=== PATIENT | male | born 1990 | race Caucasian/White ===

== ENCOUNTER 2020-11-11 13:01 | Outpatient (CLI) | payer OTHER, SELFPAY ==
--- NOTE | ~2020-11-11 | CT_ITS ---
EXAMINATION: CTA chest PE protocol DATE: 11/11/2020 13:27 INDICATION: Dyspnea TECHNIQUE: Computed tomography angiography (CTA) of the chest was performed with 100 mL Omnipaque-350 intravenous contrast timed to evaluate the pulmonary arteries. Coronal maximum intensity projection 3D-reconstructions were created by the technologist. Automated exposure control and iterative reconst ruction technique were employed. Exam dose: 786.77 mGy-cm total exam DLP. COMPARISON: 10/28/2018 PA and lateral chest 08/27/2016 CT pulmonary scan FINDINGS: There is diagnostic contrast enhancement of pulmonary stenosis of pulmonary embolism. No thoracic aortic aneurysm or dissection. Heart size is within normal range. No pericardial or pleur al effusion. No hilar or mediastinal mass lesion or lymphadenopathy. Prominent left lower lobe calcified pulmonary granuloma. No pulmonary consolidation. There is mild pa tchy groundglass density involving primarily the lower lobes, possibly due to small airways disease. IMPRESSION: No evidence of pulmonary embolism Reviewed, dictated and finalized at [facility]. Reviewed, dictated and finalized at location A.
== END 2020-11-11 13:02 | disposition home or self-care (01) ==
PROVIDERS: PCP Family Medicine; Visit Provider Physician Assistant
DX: R06.00 Dyspnea, unspecified (principal)
CPT/HCPCS: 71275; Q9967

== ENCOUNTER 2021-11-27 09:44 | Outpatient (CLI) | payer BC, SELFPAY ==
--- NOTE | ~2021-11-27 | CT_ITS ---
EXAMINATION: CT abdomen pelvis w con DATE: 11/27/2021 10:20 INDICATION: Abdominal pain. TECHNIQUE: Computed tomography (CT) of the abdomen and pelvis was performed with 100 mL Omnipaque 350 intravenous contrast. Automated exposure control and iterative reconstruction technique were employe d. The dose-length product was 1535.68 mGy-cm. COMPARISON: Chest CT 11/11/2020 FINDINGS: The visualized portions of the lung bases demonstrate mild atelectasis. A calcified left bri ng nodule is consistent with old granulomatous disease. No pleural effusion. The heart size is normal . No pericardial effusion. There is diffuse hepatic steatosis. The gallbladder, spleen, pancreas, rig ht adrenal gland, and kidneys are normal. There is a 9 mm mass of fat in left adrenal gland, consiste nt with a myelolipoma. There are no dilated loops of bowel. The appendix is normal. There are no path ologically enlarged lymph nodes. There is no free intraperitoneal fluid. There are chronic bilateral L5 pars defects. There is 8 mm anterolisthesis of L5 on S1. There is moderate degenerative disc disea se at L5-S1. IMPRESSION: 1. Diffuse hepatic steatosis. Reviewed, dictated and finalized at location A.
== END 2021-11-27 09:45 | disposition home or self-care (01) ==
PROVIDERS: PCP Family Medicine; Visit Provider Physician Assistant
DX: R10.9 Unspecified abdominal pain (principal); K76.0 Fatty (change of) liver, not elsewhere classified
CPT/HCPCS: 74177; Q9967

== ENCOUNTER 2022-05-29 08:42 | Outpatient (CLI) | payer BC, SELFPAY ==
[2022-05-29 19:22] LABS: Basophils Absolute Auto 0.1 K/mm3 (0.0-0.1); Eosinophils Absolute Auto 0.2 K/mm3 (0-0.3); Eosinophils Percent Auto 3.5 % (0-4.4); Hematocrit 41.6 % (42.0-52.0); Hemoglobin 14.3 g/dL (14.0-18.0); Immature Granulocyte Absolute 0.01 K/mm3 (0.00-0.031); Immature Granulocyte Percent A 0.2 % (0-0.5); Lymphocytes Percent Auto 25.5 % (18.3-44.2); Mean Corpuscular HGB Conc 34.4 g/dl (32-36); Mean Corpuscular Hemoglobin 29.2 pg (26-34); Mean Corpuscular Volume 84.9 fl (80-100); Mean Platelet Volume 9.6 fl (7.4-10.4); Monocytes Absolute Auto 0.4 K/mm3 (0.1-0.6); Monocytes Percent Auto 7.3 % (2.6-8.5); Neutrophils Absolute Auto 3.2 K/mm3 (1.3-6.7); Neutrophils Percent Auto 62.5 % (45.5-73.1); Platelet Count Result 214 k/mm3 (150-375); Red Cell Distribution Width 13.2 % (11.5-14.5); White Blood Count 5.1 K/mm3 (4.5-10.0)
[2022-05-29 19:38] LABS: Hemoglobin A1C 6.6 % (<5.7)
[2022-05-29 19:48] LABS: Alanine Aminotransferase 35 U/L (6-50); Albumin Level 4.4 g/dL (3.5-5.1); Alkaline Phosphatase 53 U/L (38-126); Anion Gap 2 mmol/L (8-16); Aspartate Amino Transferase 30 U/L (17-59); Bilirubin,Total 0.7 mg/dL (0.2-1.3); Blood Urea Nitrogen 13 mg/dL (9-20); Calcium 8.7 mg/dL (8.4-10.2); Carbon Dioxide 30 mmol/L (22-30); Chloride 101 mmol/L (98-107); Cholesterol 175 mg/dL (0-200); Estimated Glomerular Filt Rate > 60; Glucose 175 mg/dL (65-110); HDL Direct 30 mg/dL; Potassium 4.2 mmol/L (3.4-5.0); Sodium 133 mmol/L (137-145); Triglycerides 129 mg/dL (<150)
[2022-05-29 20:04] LABS: LDL Cholesterol Direct 113 mg/dL
[2022-06-08 12:32] LABS: Testosterone Total 373 ng/dL (250-1100)
== END 2022-05-29 08:43 | disposition home or self-care (01) ==
LOC: ANHGOSHLAB 08:43
PROVIDERS: PCP Family Medicine; Visit Provider Physician Assistant
DX: R68.82 Decreased libido (principal); Z79.899 Other long term (current) drug therapy; Z68.39 Body mass index [BMI] 39.0-39.9, adult; R73.03 Prediabetes; I10 Essential (primary) hypertension; F90.0 Attention-deficit hyperactivity disorder, predominantly inattentive type; E66.01 Morbid (severe) obesity due to excess calories
CPT/HCPCS: 36415; 80053; 80061; 83036; 84403; 84443; 85025

== ENCOUNTER 2022-06-10 08:04 | Outpatient (CLI) | payer BC, SELFPAY ==
[2022-06-14 04:00] LABS: FSH 4.7 mIU/mL (1.6-8.0); LH 3.4 mIU/mL (1.5-9.3)
[2022-06-18 16:30] LABS: Testosterone Free 66.9 pg/mL (35.0-155.0); Testosterone Total 345 ng/dL (250-1100)
== END 2022-06-10 08:05 | disposition home or self-care (01) ==
LOC: ANHGOSHLAB 08:06
PROVIDERS: PCP Family Medicine; Visit Provider Physician Assistant
DX: R79.89 Other specified abnormal findings of blood chemistry (principal)
CPT/HCPCS: 36415; 83001; 83002; 84402; 84403

== ENCOUNTER 2023-07-19 20:24 | Emergency (ER) | payer BC, SELFPAY ==
--- NOTE | ~2023-07-19 | US_ITS ---
EXAMINATION: US venous doppler UE RT DATE: 07/19/2023 22:54 INDICATION: Right upper extremity pain TECHNIQUE: Grayscale ultrasound images without and with compression and Doppler ultrasound images of the right upper extremity veins were obtained. COMPARISON: None. FINDINGS: The right internal jugular vein, subclavian vein, axillary vein, brachial veins, basilic vein, cephal ic vein, radial vein, and ulnar vein are patent. IMPRESSION: 1. No evidence of deep venous thrombosis. Reviewed, dictated and finalized at location F.
[2023-07-19 20:36] VITALS: BP 181/83; PULSE 83; RESP 18; TEMP 36.6; O2SAT 98
--- NOTE | 2023-07-19 22:14 | PC.NURSE ---
Pt to US at this time.
--- NOTE | 2023-07-19 23:53 | ED.GENADULT ---
HPI - General Adult General Chief complaint: Extremity Injury, Upper Stated complaint: bicep pain Time Seen by Provider: 07/19/23 22:11 History of Present Illness HPI narrative: Patient is a 33-year-old male who presents the emergency department this evening complaining of right arm pain. Patient states the pain has been bothering him for the past few days ever since a rugby match. Patient admits that he has had multiple surgeries in his right, multiple shoulder surgeries and surgery to repair his right biceps muscle which was performed by an orthopedic physician out of [place] approximately 5 years ago. Patient is able to move his right upper extremity at the shoulder and elbow joint and has intact full range of motion but does have pain along his upper arm with movement preventing him from using his due to. Otherwise, patient denies any additional symptoms at this time. There are no other modifying, alleviating, or precipitating factors at this time. Related Data Home Medications Medication Instructions Recorded Confirmed propranolol 60 mg capsule,24 60 mg PO DAILY 11/27/21 07/13/23 hr,extended release hydroxyzine HCl 50 mg tablet 50 mg PO QHS 05/29/22 07/13/23 prazosin 1 mg capsule 3 mg PO QHS 05/29/22 07/13/23 dextroamphetamine-amphetamine ER PO 07/13/23 07/13/23 15 mg 24hr capsule,extend release temazepam 15 mg capsule mg PO 07/13/23 07/13/23 testosterone 100 mg/mL mg IM 07/13/23 07/13/23 intramuscular suspension tirzepatide 10 mg/0.5 mL mg subcut 07/13/23 07/13/23 subcutaneous pen injector (Brianunroxanne) Allergies Allergy/AdvReac Type Severity Reaction Status Date / Time atomoxetine Allergy Unknown severe Verified 07/19/23 20:42 sweating baclofen Allergy Unknown unknown Verified 07/19/23 20:42 lisinopril Allergy Unknown Cough Verified 07/19/23 20:42 bee venom protein (honey bee) Allergy Anaphylaxis Verified 07/19/23 20:42 compazine Allergy psychosis Uncoded 07/19/23 20:42 Review of Systems Review of Systems: All systems are reviewed and are negative unless stated otherwise in the HPI. [facility] Past Medical History Medical History COVID-19 + 11.5.20 .12.20 /discharged 16.20 ( [facility]) Fibrocystic breast disease (FCBD) Hyperglycemia, unspecified (08/19/17) Left breast lump no discreet lump on repeat exam Other specific joint derangements of left hip, not elsewhere classified Other specific joint derangements of right shoulder, not elsewhere classified Tendonitis of wrist, right Trigger point of right shoulder region Family History Family History Other Family history of cardiovascular disease Family history of glaucoma Malignant neoplasm of prostate Social History Social History Social History: Caffeine-coffee Smoking status: Never smoker Alcohol intake: current Alcohol use details: occasionally Substance use: never Lack of Transportation: No Lack of Food: Never True Current Housing: I Have Housing Concerned About Future Housing: No Difficulty Paying Gas/Electric Bills: No Difficulty Paying for Meds: No Currently Unemployed: No Education: Trade/Vocational Certificate Difficulty w/ Childcare or Family Care: No Exam Narrative: General: Alert, awake, afebrile, in no acute distress. HEENT: PERRL, no rhinorrhea, no post nasal drip, oropharynx clear. Neck: Trachea midline, no JVD, no lymphadenopathy. Cardiovascular: Regular rate and rhythm, no murmurs, rubs or gallops, no peripheral edema. Respiratory: Clear to auscultation bilaterally, no tachypnea, no wheezing, no rhonchi, no rubs, no respiratory distress. Abdomen: Soft, nontender, nondistended, no rebound, no guarding, no peritoneal signs. Musculoskeletal: Intact range of motion at the right shoulder, right el
[2023-07-20] MEDS: HYDROcodone/acetaminophen (*CRX) 10-325 MG TABLET 1 TAB PO (00:01)
== END 2023-07-20 00:20 | disposition home or self-care (01) ==
PROVIDERS: Emergency Provider Emergency Medicine; PCP Family Medicine
DX: M79.621 Pain in right upper arm (principal); Z86.16 Personal history of COVID-19
CPT/HCPCS: 93971; 99284; A9270

== ENCOUNTER 2024-01-13 10:10 | Outpatient (CLI) | payer BC, SELFPAY ==
[2024-01-13 13:42] LABS: Basophils Percent Auto 0.8 % (0.2-1.2); Eosinophils Absolute Auto 0.1 K/mm3 (0-0.3); Eosinophils Percent Auto 2.8 % (0-4.4); Hematocrit 41.4 % (42.0-52.0); Hemoglobin 14.2 g/dL (14.0-18.0); Immature Granulocyte Absolute 0.02 K/mm3 (0.00-0.031); Immature Granulocyte Percent A 0.4 % (0-0.5); Lymphocytes Absolute Auto 1.39 K/mm3 (0.9-3.2); Lymphocytes Percent Auto 27.3 % (18.3-44.2); Mean Corpuscular HGB Conc 34.3 g/dl (32-36); Mean Corpuscular Hemoglobin 29.8 pg (26-34); Mean Corpuscular Volume 86.8 fl (80-100); Mean Platelet Volume 9.7 fl (7.4-10.4); Monocytes Absolute Auto 0.3 K/mm3 (0.1-0.6); Monocytes Percent Auto 6.5 % (2.6-8.5); Neutrophils Absolute Auto 3.2 K/mm3 (1.3-6.7); Neutrophils Percent Auto 62.2 % (45.5-73.1); Platelet Count Result 208 k/mm3 (150-375); Red Blood Count 4.77 M/mm3 (4.6-6.20); Red Cell Distribution Width 13.9 % (11.5-14.5); White Blood Count 5.1 K/mm3 (4.5-10.0)
[2024-01-13 13:51] LABS: Alanine Aminotransferase 51 U/L (6-50); Albumin Level 4.9 g/dL (3.5-5.1); Alkaline Phosphatase 60 U/L (38-126); Anion Gap 10 mmol/L (4-12); Aspartate Amino Transferase 63 U/L (17-59); Bilirubin,Total 1.5 mg/dL (0.2-1.3); Blood Urea Nitrogen 13 mg/dL (9-20); Calcium 9.2 mg/dL (8.4-10.2); Carbon Dioxide 26 mmol/L (22-30); Chloride 96 mmol/L (98-107); Cholesterol 146 mg/dL (0-200); Estimated Glomerular Filt Rate > 60; Glucose 91 mg/dL (65-110); HDL Direct 31 mg/dL; Potassium 4.1 mmol/L (3.4-5.0); Sodium 132 mmol/L (137-145); Triglycerides 116 mg/dL (<150)
[2024-01-13 13:59] LABS: LDL Cholesterol Direct 86 mg/dL
[2024-01-13 19:26] LABS: Microalbumin Urine Random 103.1 mg/L (0-16.7)
[2024-01-13 21:22] LABS: Creatinine Urine 468.8 mg/dL
[2024-01-13 21:32] LABS: Hemoglobin A1C 5.7 % (<5.7)
[2024-01-20 01:40] LABS: Testosterone Total 349 ng/dL (250-1100)
== END 2024-01-13 10:11 | disposition home or self-care (01) ==
LOC: ANHGOSHLAB 10:11
PROVIDERS: PCP Family Medicine; Visit Provider Family Medicine
DX: E11.9 Type 2 diabetes mellitus without complications (principal); R79.89 Other specified abnormal findings of blood chemistry; Z12.5 Encounter for screening for malignant neoplasm of prostate
CPT/HCPCS: 36415; 80053; 80061; 82043; 82607; 83036; 84153; 84403; 85025; G0103

== ENCOUNTER 2024-08-15 08:39 | Outpatient (CLI) | payer BC, SELFPAY ==
--- OUTSIDE RECORDS SUMMARY | 2024-08-15 09:02 | XMS_ITS | Encounter Summary ---
Author Organization [facility] Healthcare Address [address] [place] [address] Care Team Providers Care Agronomy Professor Name Role Phone Lupe Reyez MD Primary Care Provider + Encounter Details Date Type Department Care Team (Latest Contact Info) Description 06/18/2020 Ophth Exam Ophthalmology Kamilah Poe MD PhD [address] [facility] [address] [place] [address] Social History Tobacco Use Types Packs/Day Years Used Date Smoking Tobacco: Never Smokeless Tobacco: Never Alcohol Use Standard Drinks/Week Comments Yes 0 (1 standard drink = 0.6 oz pur e alcohol) socially, not even once a week PHQ-2 Answer Date Recorded PHQ-2 Total Score (If total score is 3 or more points, staff should administer the PHQ-9) 0 03/08/2020 Sex and Gender Information Value Date Recorded Sex Assigned at Not on file 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 03/25/2020 06/18/2020 07/23/2020 3:05 AM C DT COVID: Suspected 07/23/2023 07/23/2023 07/23/2023 6:12 PM CDT documented as of this encounter Eye Exam Visual Acuity (Snellen - Linear) Right eye Left eye Near sc 20/70 PHNI 20/20 Tonometry (Tonopen, 7:29 PM) Right eye Left eye Pressure 22 24 Pupils Dark Light Shape React APD Right eye 5 3 Round Brisk None Left eye 5 3 Round Brisk None Visual Albert Right eye Left eye Full Full Extraocular Movement Right eye Left eye Full Full Neuro/Psych Oriented x3: Yes Mood/Affect: Normal Dilation Both eyes: 1% Tropicamide, 2 .5% Phenylephrine @ 7:29 PM Color Right eye Left eye Ishihara 04/06 04/06 External Exam Right eye Left eye External Normal Normal Slit Lamp Exam Right eye Left eye Lids/Lashes Normal Normal Conjunctiva/Sclera White and quiet White and kris et Cornea Clear Clear Anterior Chamber Deep and quiet Deep and quiet Iris Round and reactive Round and young ctive Lens Clear Clear Vitreous Normal Normal Fundus Exam Right eye Left eye Disc Normal crisp margins , no pallor or heme Normal crisp margins, no pallor or heme C/D Ratio 0.4 0.4 Macula Normal flat attached Normal flat attached Vessels Normal c/c Normal c/c Periphery Normal without lesio ns, tears or detachments Normal without lesions, tears or detachments Care Teams Agronomy Professor Relationship Specialty Start Date End Date Lupe Reyez MD PCP - General 11/09/16 documented as of this encounter
--- OUTSIDE RECORDS SUMMARY | 2024-08-15 09:02 | XMS_ITS | Continuity of Care Document ---
Author Organization [facility] Address [address] [place] [address] Phone Care Team Providers Care Inspector Finishing Name Role Phone Administrative, Provider Unavailable Unavail able Allergies, Adverse Reactions, Alerts Substance Reaction Status Criticality baclofen Active No Information Medications Medication Instructions Dosage Effective Dates (start - stop) Status Comments No Drug Therapy Prescribed Procedures Procedure Date Medical Record Copy Medical Record Copy Per Page Affidavit Affidavit Rating Letter X-ray exam shoulder minimum 2 views Supplemental Report Global/Postop followup visit Global/Postop followup visit Supplemental Report Supplemental Report Global/Postop followup visit Alli Sling With Waist Strap Cryotherapy Combo Unit Office/outpatient visit,est, mod 2013 Supplemental Report X-ray exam shoulder minimum 2 views Office consultation, moderate-high Advance Directives Directive Yes / No Effective Date File Name No Information Encounters Encounter Description Practice Location Reason(s) For Visit Diagnoses Date Provider Providers Copied on Encounter [facility], [address], [place], [place], [id number], [place] tel:[phone] [facility] No Information 2 5 Administrati ve Provider. [address] [address], [place], [place], [id number], [place]. tel:[phone] Rating Letter [facility], [address] [address], [place], [place], [id number], [place] tel:[phone] [facility] No Information Jul-2 7-201 5 Melodie Jose Armando. [address] [address], [place], [place], [id number], [place]. tel:[phone] [facility], [address], [id number], [place] tel:[phone] [facility] Bicipital tenosynovitisL abral tearSPRAIN ROTATOR CUFF Apr-0 8 5 Melodie Jose Armando. [address], [id number], [place]. tel:[phone] [facility], [address] [place] [address], [id number], [place] tel:[phone] [facility] Labral tearBicipital tenosynovitisJ [facility] Jun-0 4-201 5 Melodie Jose Armando. [address], [id number], [place]. tel:[phone] [facility], [address] [place] [address], [id number], [place] tel:[phone] [facility] Labral tearSPRAIN ROTATOR CUFFJOINT PAIN-SHLDER Feb-0 4-201 5 Melodie Jose Armando. [address], [id number], [place]. tel:[phone] [facility], [address] [place] [address], [id number], [place] tel:[phone] No Information 8-201 5 Melodie Jose Armando. [address], [id number], [place]. tel:[phone] [facility], [address], [id number], tel:[phone] [facility] Labral tear 5 Melodie Suárez. [address] [place] [address], [address], [id number], [place]. tel:[phone] Office/outpa tient visit,est, mod [facility], [address] [place] [address], [id number], tel:[phone] [facility] Bicipital tenosynovitisJ [facility]SHLDERLab ral tear 4 Melodie Suárez. [address] [place] [address], [id number], [place]. tel:[phone] Office consultation , moderate-hig h [facility], [address] [place] [address], [id number], tel:[phone] [facility] JOINT PAIN-SHLDERBic ipital tenosynovitis 4 Melodie Suárez. [address] [place] [address], [address], [id number], [place]. tel:[phone] Family History Family Member Type Diagnosis Age At Onset Paternal grandmother Problem (finding) hypertension Paternal grandfather Problem (finding) Cancer, unknown Father Problem (finding) hypertension Maternal grandmother Problem (finding) Heart disease Maternal grandmother Problem (finding) Diabetes mellit us Maternal grandmother Problem (finding) stroke Immunizations Vaccine Date Status Comments Flu (split) (3 yrs or older) administered Note: patient reported.Invalid documented admin date was . ; Source: Source Unspecified Payers Payer name Insurance type Covered democrat ID Authoriza tion(s) No Information Social History Type Description Quantity Date Captured Comments Sex Male Smoking Status No Information Chief Complaint And Reason For Visit No Information Reason For Referral Reason For Referral No Information Plan Of Treatment Date Type Action Status Referral Ordered: Arthrogram of shoulder joint RT shoulder ordered Referral Ordered: MRI upper extr joint, w/contrast RT shoulder Appointment date/timeframe: 04/16/2014 ordered Referral Ordered: X-ray exam shoulder minimum 2 views RT ordered Patient Education Shoulder Arthroscopy: B efore Your Surg completed Patient Education Rotator Cuff Disease: A fter Your Visit completed History Of Present Illness Encounter Date Complaint History Of Prese nt Illness No Information Functional Status Date Functional Assessmen t No Information Medications Administered Medication Instructions Dosage Effective Dates (start - stop) Status Comments No Drug Therapy Prescribed Instructions Date Instruction Additional Infor mation No Information Assessments Type Assessment Date No Information Patient Care Teams Name Effective Dates (start - stop) Status Members No Information
--- OUTSIDE RECORDS SUMMARY | 2024-08-15 09:02 | XMS_ITS | Clinical Summary ---
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 Gender Identity Not on file Sexual Orientation Not on file Plan of Treatment Health Maintenance Due Date Last Done Comments Annual Physical 02/19/1992 Hepatitis C 2007 DTaP, Tdap and Td Vaccines ( 1 - Tdap) 02/19/2008 Hepatitis B Vaccines (1 of 3 - 19+ 3-dose series) 02/19/2008 COVID-19 Vaccine ( - 2023-2 5 season) 2023 HPV Vaccines Aged Out No longer eligi ble based on patient's age to complete this topic Meningococcal B Vaccine Aged Out No l onger eligible based on patient's age to complete this topic Meningococcal Vaccine Aged Out No darlene joni eligible based on patient's age to complete this topic Pneumococcal Vaccine: Pediat rics (0 to 5 Years) and At-Risk Patients (6 to 49 Years) Aged Out No longer eligible b ased on patient's age to complete this topic RSV Immunizations Under 20 Months Aged Out No longer eligible based on patient's age to complete this topic
--- OUTSIDE RECORDS SUMMARY | 2024-08-15 09:03 | XMS_ITS | Clinical Summary ---
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 Medications levocetirizine (XYZAL) 5 mg tablet Take 1 tablet (5 mg total) by mouth every evening Active metFORMIN (GLUCOPHAGE) 500 mg tablet Take 1 tablet (500 mg total) by mouth 2 (two) times a day with meals Active prazosin (MINIPRESS) 1 mg capsule Take 3 capsules (3 mg total) by mouth nightly as needed (nightmares) 270 capsule 11/19/19 027 Active propranolol LA (INDERAL LA) 60 mg 24 hr capsule Take 1 capsule (60 mg total) by mouth daily 90 capsule 11/19/19 027 Active Additional Information Patient taking differently:60 mg oralEvery morning, Indications: hypertension, anxiety, Informant: Self, Reported on 03/27/2024 sertraline (ZOLOFT) 50 mg tablet Take 1 tablet (50 mg total) by mouth daily 90 tablet 11/19/19 027 Active Additional Information Patient taking differently:50 mg oralEvery morning, Indications: depression, Informant: Self, Reported on 03/27/2024 temazepam (RESTORIL) 15 mg capsule Take 1 capsule (15 mg total) by mouth nightly as needed for sleep 30 capsule 2 11/19/19 24 Active tirzepatide (Mounjaro) 10 mg/0.5 mL pen injector Inject 10 mg under the skin every 7 days 4 mL 11 02/18/20 24 025 Active hydrOXYzine (VISTARIL) 50 mg capsule TAKE 1 CAPSULE(50 MG) BY MOUTH EVERY NIGHT NEEDED FOR INSOMNIA 90 capsule 3 02/29/20 24 Active dextroamphetam ine-amphetamin e XR (Adderall XR) 15 mg 24 hr capsule Take 1 capsule (15 mg total) by mouth every morning 30 capsule 09/01/19 25 025 Active dextroamphetam ine-amphetamin e XR (Adderall XR) 15 mg 24 hr capsule Take 1 capsule (15 mg total) by mouth every morning 30 capsule 09/30/19 25 025 Active dextroamphetam ine-amphetamin e XR (Adderall XR) 15 mg 24 hr capsule Take 1 capsule (15 mg total) by mouth every morning 30 capsule 10/30/19 25 025 Active dextroamphetam ine-amphetamin e XR (Adderall XR) 15 mg 24 hr capsule Take 1 capsule (15 mg total) by mouth every morning 30 capsule 05/19/19 25 025 Discontinued dextroamphetam ine-amphetamin e XR (Adderall XR) 15 mg 24 hr capsule Take 1 capsule (15 mg total) by mouth every morning 30 capsule 06/17/19 25 025 Discontinued dextroamphetam ine-amphetamin e XR (Adderall XR) 15 mg 24 hr capsule Take 1 capsule (15 mg total) by mouth every morning 30 capsule 07/17/19 25 025 Discontinued Active Problems Problem Noted Date Diagnosed Date Hypertrophy of both inferior nasal turbinates WENDY (obstructive sleep apnea) 06/04/2023 Deviated nasal septum 06/04/2023 Nasal valve collapse 06/04/2023 Persistent depressive disorder 03/05/2023 Assessment & Plan (08/11/2024 8:22 AM CDT): Chronic, persistent symptoms including several of the following: depressed mood for most of the day, for more days than not, as indicated by either subjective account or observation by others for at least 2 years, and at least the presence, while depressed, of 2 or more of the following: poor appetite or overeating, insomnia or hypersomnia, low energy or fatigue, low self-esteem, poor concentration or difficulty making decisions, feelings of hopelessness. It is additionally noted that the patient has never been without the symptoms for more than 2 months at a time. Additionally, it is noted that there has never been a manic episode or a hypomanic episode, and criteria have never been met for cyclothymic disorder. The disturbance is not better explained by a persistent schizoaffective disorder, schizophrenia, delusional disorder, or other specified or unspecified schizophrenia spectrum and other psychotic disorder. The symptoms are not attributable to the physiological effects of a substance (e.g., a drug of abuse, a medication) or another medical condition (e.g., hypothyroidism). The patient does report that the symptoms cause clinically significant distress or impairment in social, occupational, or other important areas of functioning. 03/05/2023: Depression - 6-11/0211/19/2023: 7-12/0308/11/2024: 08/03 The patient denies current suicidal ideation. The patient denies current homicidal ideation. The patient does not endorse any symptoms of psychosis, jazmin, or hypomania. I discussed the importance of lifestyle modification with the patient today. The patient will focus on lifestyle modification including: changes to diet, incorporate regularly scheduled exercise, obtain sufficient sleep/maintain proper sleep hygiene, and focus on reducing (or managing) stress levels with healthy techniques. Continue Zoloft 50 mg daily. Monitor an interval as discussed today. Assessment & Plan (05/12/2024 10:55 AM SAP SENIOR DEVELOPER): Chronic, persistent symptoms including several of the following: depressed mood for most of the day, for more days than not, as indicated by either subjective account or observation by others for at least 2 years, and at least the presence, while depressed, of 2 or more of the following: poor appetite or overeating, insomnia or hypersomnia, low energy or fatigue, low self-esteem, poor concentration or difficulty making decisions, feelings of hopelessness. It is additionally noted that the patient has never been without the symptoms for more than 2 months at a time. Additionally, it is noted that there has never been a manic episode or a hypomanic episode, and criteria have never been met for cyclothymic disorder. The disturbance is not better explained by a persistent schizoaffective disorder, schizophrenia, delusional disorder, or other specified or unspecified schizophrenia spectrum and other psychotic disorder. The symptoms are not attributable to the physiological effects of a substance (e.g., a drug of abuse, a medication) or another medical condition (e.g., hypothyroidism). The patient does report that the symptoms cause clinically significant distress or impairment in social, occupational, or other important areas of functioning. 03/05/2023: Depression - -11/0211/19/2023: 7 The patient denies current suicidal ideation. The patient denies current homicidal ideation. The patient does not endorse any symptoms of psychosis, jazmin, or hypomania. I discussed the importance of lifestyle modification with the patient today. The patient will focus on lifestyle modification including: changes to diet, incorporate regularly scheduled exercise, obtain sufficient sleep/maintain proper sleep hygiene, and focus on reducing (or managing) stress levels with healthy techniques. Continue Zoloft 50 mg daily. Monitor an interval as discussed today. Assessment & Plan (02/27/2024 10:57 PM SAP SENIOR DEVELOPER): Chronic, persistent symptoms including several of the following: depressed mood for most of the day, for more days than not, as indicated by either subjective account or observation by others for at least 2 years, and at least the presence, while depressed, of 2 or more of the following: poor appetite or overeating, insomnia or hypersomnia, low energy or fatigue, low self-esteem, poor concentration or difficulty making decisions, feelings of hopelessness. It is additionally noted that the patient has never been without the symptoms for more than 2 months at a time. Additionally, it is noted that there has never been a manic episode or a hypomanic episode, and criteria have never been met for cyclothymic disorder. The disturbance is not better explained by a persistent schizoaffective disorder, schizophrenia, delusional disorder, or other specified or unspecified schizophrenia spectrum and other psychotic disorder. The symptoms are not attributable to the physiological effects of a substance (e.g., a drug of abuse, a medication) or another medical condition (e.g., hypothyroidism). The patient does report that the symptoms cause clinically significant distress or impairment in social, occupational, or other important areas of functioning. 03/05/2023: Depression - 6-11/0211/19/2023: 7-8 The patient denies current suicidal ideation. +thinking it doesn't matter if I am here or not The patient denies current homicidal ideation. The patient does not endorse any symptoms of psychosis, jazmin, or hypomania. I discussed the importance of lifestyle modification with the patient today. The patient will focus on lifestyle modification including: changes to diet, incorporate regularly scheduled exercise, obtain sufficient sleep/maintain proper sleep hygiene, and focus on reducing (or managing) stress levels with healthy techniques. Continue Zoloft 50 mg daily. Monitor an interval as discussed today. Assessment & Plan (11/19/2023 9:46 AM CDT): Chronic, persistent symptoms including several of the following: depressed mood for most of the day, for more days than not, as indicated by either subjective account or observation by others for at least 2 years, and at least the presence, while depressed, of 2 or more of the following: poor appetite or overeating, insomnia or hypersomnia, low energy or fatigue, low self-esteem, poor concentration or difficulty making decisions, feelings of hopelessness. It is additionally noted that the patient has never been without the symptoms for more than 2 months at a time. Additionally, it is noted that there has never been a manic episode or a hypomanic episode, and criteria have never been met for cyclothymic disorder. The disturbance is not better explained by a persistent schizoaffective disorder, schizophrenia, delusional disorder, or other specified or unspecified schizophrenia spectrum and other psychotic disorder. The symptoms are not attributable to the physiological effects of a substance (e.g., a drug of abuse, a medication) or another medical condition (e.g., hypothyroidism). The patient does report that the symptoms cause clinically significant distress or impairment in social, occupational, or other important areas of functioning. 03/05/2023: Depression - 6-11/0211/19/2023: 7 The patient denies current suicidal ideation. +thinking it doesn't matter if I am here or not The patient denies current homicidal ideation. The patient does not endorse any symptoms of psychosis, jazmin, or hypomania. I discussed the importance of lifestyle modification with the patient today. The patient will focus on lifestyle modification including: changes to diet, incorporate regularly scheduled exercise, obtain sufficient sleep/maintain proper sleep hygiene, and focus on reducing (or managing) stress levels with healthy techniques. Restart Zoloft 50 mg daily. Monitor an interval as discussed today. Assessment & Plan (03/05/2023 2:06 PM SAP SENIOR DEVELOPER): Chronic, persistent symptoms including several of the following: depressed mood for most of the day, for more days than not, as indicated by either subjective account or observation by others for at least 2 years, and at least the presence, while depressed, of 2 or more of the following: poor appetite or overeating, insomnia or hypersomnia, low energy or fatigue, low self-esteem, poor concentration or difficulty making decisions, feelings of hopelessness. It is additionally noted that the patient has never been without the symptoms for more than 2 months at a time. Additionally, it is noted that there has never been a manic episode or a hypomanic episode, and criteria have never been met for cyclothymic disorder. The disturbance is not better explained by a persistent schizoaffective disorder, schizophrenia, delusional disorder, or other specified or unspecified schizophrenia spectrum and other psychotic disorder. The symptoms are not attributable to the physiological effects of a substance (e.g., a drug of abuse, a medication) or another medical condition (e.g., hypothyroidism). The patient does report that the symptoms cause clinically significant distress or impairment in social, occupational, or other important areas of functioning. 03/05/2023: Depression - -11/02 The patient denies current suicidal ideation. The patient denies current homicidal ideation. The patient does not endorse any symptoms of psychosis, jazmin, or hypomania. I discussed the importance of lifestyle modification with the patient today. The patient will focus on lifestyle modification including: changes to diet, incorporate regularly scheduled exercise, obtain sufficient sleep/maintain proper sleep hygiene, and focus on reducing (or managing) stress levels with healthy techniques. Continue current management. Continue to monitor. Lack of adequate sleep 12/26/2021 Assessment & Plan (03/05/2023 2:04 PM SAP SENIOR DEVELOPER): Chronic, persistent. Poor sleep. Affecting quality of life. Only getting 3 hours of sleep per night. Reports the following: Feels agitated. Reports the following a scale 0 to 10 with 0 being none and 10 being severe: Depression - 6-7/10 Anxiety - 6-7/10 Insomnia - 9/10 Falling asleep - 8/10 Staying asleep - 7/10 Early awakening - 8/10 Average sleep 3 hrs per night Trial of Restoril 15 mg HS p.r.n.. Focus on sleep hygiene. Monitor at interval. Assessment & Plan (12/26/2021 11:05 AM CDT): Continues to have trouble getting enough sleep - despite going to bed at 930-10 and waking for work at 530-6 to get ready for work. Nightmares wake him and keep him up for a hr or more at a time. Freq: 3-4 times per week. 4-5 hours per night - he notes that it is better than it has been in the past. Consideration for [facility] at [facility] in the future when the patient is able to do so. Essential hypertension 11/20/2020 Assessment & Plan (12/18/2020 9:12 AM CDT): Better controlled now with Propranolol. Plan to continue. Monitor at home. Additional changes per primary care physician. Assessment & Plan (11/20/2020 10:16 AM CDT): Acute, persistent. Reportedly remaining elevated in the 160's - as high as 190 mm Hg. Continue to monitor. Start Propranolol LA 60 mg daily and titrate up for effectiveness. Additional monitoring per PCP. LESLIE (dyspnea on exertion) 11/14/2020 History of COVID-19 11/14/2020 Temporary high blood pressure 11/14/2020 Mixed hyperlipidemia 11/14/2020 Family history of premature CAD 11/14/2020 ADHD, adult residual type 09/05/2020 Assessment & Plan (08/11/2024 8:19 AM CDT): Chronic, persistent symptoms of inattention, distractibility, inability to complete tasks on time, disorganization, failure to give close attention to details/careless mistakes, difficulty sustaining attention in tasks, loses items, forgetful in daily activities, and is easily distracted by extraneous stimuli. There is clear evidence of clinically significant impairment in social, academic, and/or occupational functioning. The patient reports overall efficacy with the current medication regimen. The patient reports taking all medications as prescribed. The patient does not report any side effects from these medications. Risk of long-term cardiovascular complications discussed with the patient at length including increased likelihood of changes to the structure and function being of the heart and cardiovascular system. The patient verbalized an understanding and expressed a desire to continue with current medication management. Compensatory strategies discussed for dealing with the ongoing symptoms of ADHD including the importance of structure, planning, and organization. Continue treatment with the following medications: Adderall XR 15 mg every morning Refills provided to the patient Continue to monitor at interval as discussed. Assessment & Plan (05/12/2024 10:56 AM SAP SENIOR DEVELOPER): Chronic, persistent symptoms of inattention, distractibility, inability to complete tasks on time, disorganization, failure to give close attention to details/careless mistakes, difficulty sustaining attention in tasks, loses items, forgetful in daily activities, and is easily distracted by extraneous stimuli. There is clear evidence of clinically significant impairment in social, academic, and/or occupational functioning. The patient reports overall efficacy with the current medication regimen. The patient reports taking all medications as prescribed. The patient does not report any side effects from these medications. Risk of long-term cardiovascular complications discussed with the patient at length including increased likelihood of changes to the structure and function being of the heart and cardiovascular system. The patient verbalized an understanding and expressed a desire to continue with current medication management. Compensatory strategies discussed for dealing with the ongoing symptoms of ADHD including the importance of structure, planning, and organization. Continue treatment with the following medications: Adderall XR 15 mg every morning Refills provided to the patient Continue to monitor at interval as discussed. Assessment & Plan (02/27/2024 10:56 PM SAP SENIOR DEVELOPER): Chronic, persistent symptoms of inattention, distractibility, inability to complete tasks on time, disorganization, failure to give close attention to details/careless mistakes, difficulty sustaining attention in tasks, loses items, forgetful in daily activities, and is easily distracted by extraneous stimuli. There is clear evidence of clinically significant impairment in social, academic, and/or occupational functioning. The patient reports not currently taking - as he has not had Adderall. The patient reports taking all medications as prescribed. The patient does not report any side effects from these medications. Risk of long-term cardiovascular complications discussed with the patient at length including increased likelihood of changes to the structure and function being of the heart and cardiovascular system. The patient verbalized an understanding and expressed a desire to continue with current medication management. Compensatory strategies discussed for dealing with the ongoing symptoms of ADHD including the importance of structure, planning, and organization. Continue treatment with the following medications: Continue Adderall XR 15 mg every morning Refills provided to the patient. Continue to monitor at interval as discussed. Assessment & Plan (11/19/2023 9:39 AM CDT): Chronic, persistent symptoms of inattention, distractibility, inability to complete tasks on time, disorganization, failure to give close attention to details/careless mistakes, difficulty sustaining attention in tasks, loses items, forgetful in daily activities, and is easily distracted by extraneous stimuli. There is clear evidence of clinically significant impairment in social, academic, and/or occupational functioning. The patient reports not currently taking - as he has not had Adderall. The patient reports taking all medications as prescribed. The patient does not report any side effects from these medications. Risk of long-term cardiovascular complications discussed with the patient at length including increased likelihood of changes to the structure and function being of the heart and cardiovascular system. The patient verbalized an understanding and expressed a desire to continue with current medication management. Compensatory strategies discussed for dealing with the ongoing symptoms of ADHD including the importance of structure, planning, and organization. Continue treatment with the following medications: Re-start Adderall XR 15 mg every morning Refills provided to the patient. Continue to monitor at interval as discussed. Assessment & Plan (03/05/2023 2:02 PM SAP SENIOR DEVELOPER): Chronic, persistent symptoms of inattention, distractibility, inability to complete tasks on time, disorganization, failure to give close attention to details/careless mistakes, difficulty sustaining attention in tasks, loses items, forgetful in daily activities, and is easily distracted by extraneous stimuli. There is clear evidence of clinically significant impairment in social, academic, and/or occupational functioning. The patient reports overall efficacy with the current medication regimen. The patient reports taking all medications as prescribed. The patient does not report any side effects from these medications. Risk of long-term cardiovascular complications discussed with the patient at length including increased likelihood of changes to the structure and function being of the heart and cardiovascular system. The patient verbalized an understanding and expressed a desire to continue with current medication management. Compensatory strategies discussed for dealing with the ongoing symptoms of ADHD including the importance of structure, planning, and organization. Continue treatment with the following medications: Discontinue Vyvanse 70 mg q am Start Adderall XR 15 mg every morning Refills provided to the patient. Continue to monitor at interval as discussed. Assessment & Plan (01/11/2023 5:02 PM CDT): Chronic, persistent symptoms of inattention, distractibility, inability to complete tasks on time, disorganization, failure to give close attention to details/careless mistakes, difficulty sustaining attention in tasks, loses items, forgetful in daily activities, and is easily distracted by extraneous stimuli. There is clear evidence of clinically significant impairment in social, academic, and/or occupational functioning. The patient reports overall efficacy with the current medication regimen. The patient reports taking all medications as prescribed. The patient does not report any side effects from these medications. Risk of long-term cardiovascular complications discussed with the patient at length including increased likelihood of changes to the structure and function being of the heart and cardiovascular system. The patient verbalized an understanding and expressed a desire to continue with current medication management. Compensatory strategies discussed for dealing with the ongoing symptoms of ADHD including the importance of structure, planning, and organization. Continue treatment with the following medications: Continue Vyvanse 70 mg q am Refills provided to the patient. Continue to monitor at interval as discussed. Assessment & Plan (11/20/2022 9:55 AM CDT): Chronic, persistent symptoms of inattention, distractibility, inability to complete tasks on time, disorganization, failure to give close attention to details/careless mistakes, difficulty sustaining attention in tasks, loses items, forgetful in daily activities, and is easily distracted by extraneous stimuli. There is clear evidence of clinically significant impairment in social, academic, and/or occupational functioning. The patient reports overall efficacy with the current medication regimen. The patient reports taking all medications as prescribed. The patient does not report any side effects from these medications. Risk of long-term cardiovascular complications discussed with the patient at length including increased likelihood of changes to the structure and function being of the heart and cardiovascular system. The patient verbalized an understanding and expressed a desire to continue with current medication management. Compensatory strategies discussed for dealing with the ongoing symptoms of ADHD including the importance of structure, planning, and organization. Continue treatment with the following medications: Continue Vyvanse 70 mg q am Refills provided to the patient. Continue to monitor at interval as discussed. Assessment & Plan (09/23/2022 12:22 PM CDT): Chronic, persistent symptoms of inattention, distractibility, inability to complete tasks on time, disorganization, failure to give close attention to details/careless mistakes, difficulty sustaining attention in tasks, loses items, forgetful in daily activities, and is easily distracted by extraneous stimuli. There is clear evidence of clinically significant impairment in social, academic, and/or occupational functioning. The patient reports overall efficacy with the current medication regimen. The patient reports taking all medications as prescribed. The patient does not report any side effects from these medications. Risk of long-term cardiovascular complications discussed with the patient at length including increased likelihood of changes to the structure and function being of the heart and cardiovascular system. The patient verbalized an understanding and expressed a desire to continue with current medication management. Compensatory strategies discussed for dealing with the ongoing symptoms of ADHD including the importance of structure, planning, and organization. Continue treatment with the following medications: Discontinue Vyvanse 50 mg q am Start Vyvanse 70 mg q am Refills provided to the patient. Continue to monitor at interval as discussed. Assessment & Plan (04/18/2022 9:20 AM SAP SENIOR DEVELOPER): Chronic, persistent symptoms of inattention, distractibility, inability to complete tasks on time, disorganization, failure to give close attention to details/careless mistakes, difficulty sustaining attention in tasks, loses items, forgetful in daily activities, and is easily distracted by extraneous stimuli. There is clear evidence of clinically significant impairment in social, academic, and/or occupational functioning. The patient reports overall efficacy with the current medication regimen. The patient reports taking all medications as prescribed. The patient does not report any side effects from these medications. Risk of long-term cardiovascular complications discussed with the patient at length including increased likelihood of changes to the structure and function being of the heart and cardiovascular system. The patient verbalized an understanding and expressed a desire to continue with current medication management. Compensatory strategies discussed for dealing with the ongoing symptoms of ADHD including the importance of structure, planning, and organization. Continue treatment with the following medications: Vyvanse 50 mg daily Refills provided to the patient Continue to monitor at interval as discussed. Assessment & Plan (12/26/2021 10:38 AM CDT): Chronic, persistent symptoms of inattention, distractibility, inability to complete tasks on time, disorganization, failure to give close attention to details/careless mistakes, difficulty sustaining attention in tasks, loses items, forgetful in daily activities, and is easily distracted by extraneous stimuli. There is clear evidence of clinically significant impairment in social, academic, and/or occupational functioning. The patient reports overall efficacy with the current medication regimen. The patient reports taking all medications as prescribed. The patient does not report any side effects from these medications. Risk of long-term cardiovascular complications discussed with the patient at length including increased likelihood of changes to the structure and function being of the heart and cardiovascular system. The patient verbalized an understanding and expressed a desire to continue with current medication management. Compensatory strategies discussed for dealing with the ongoing symptoms of ADHD including the importance of structure, planning, and organization. Restart treatment with the following medications: Vyvanse 40 mg daily - he would like to take 50 mg - but will hold for now until BP at target (restarting Propranolol) Refills provided to the patient. Continue to monitor at 3 month interval as discussed. Assessment & Plan (12/18/2020 9:13 AM CDT): Chronic, persistent symptoms of inattention, distractibility, inability to complete tasks on time, disorganization, failure to give close attention to details/careless mistakes, difficulty sustaining attention in tasks, loses items, forgetful in daily activities, and is easily distracted by extraneous stimuli. There is clear evidence of clinically significant impairment in social, academic, and/or occupational functioning. The patient reports overall efficacy with the current medication regimen. The patient reports taking all medications as prescribed. The patient does not report any side effects from these medications. Risk of long-term cardiovascular complications discussed with the patient at length including increased likelihood of changes to the structure and function being of the heart and cardiovascular system. The patient verbalized an understanding and expressed a desire to continue with current medication management. Compensatory strategies discussed for dealing with the ongoing symptoms of ADHD including the importance of structure, planning, and organization. Continue treatment with the following medications: Vyvanse 40 mg daily Refills provided to the patient. Continue to monitor at interval as discussed. Assessment & Plan (11/20/2020 10:16 AM CDT): Hold Vyvanse due to elevated BP. Assessment & Plan (09/10/2020 2:52 PM CDT): Chronic, persistent. Discontinue Concerta. Start Vyvanse 40 mg daily. Initial prescription sent to [facility]. Months to in 3 sent to [facility] mail-in pharmacy. Severe recurrent major depre ssion without psychotic features 06/26/2020 Generalized anxiety disorder 06/26/2020 Assessment & Plan (08/11/2024 8:23 AM CDT): Chronic condition with persistent symptoms. Denies any worsening symptoms. Medication changes today: None 08/11/2024: 08/03 Insight-oriented, supportive counseling provided. Continued management as discussed Assessment & Plan (05/12/2024 10:56 AM SAP SENIOR DEVELOPER): Chronic condition with persistent symptoms. Denies any worsening symptoms. Medication changes today: None Insight-oriented, supportive counseling provided. Continued management as discussed Assessment & Plan (02/27/2024 10:56 PM SAP SENIOR DEVELOPER): Chronic condition with persistent symptoms. Denies any worsening symptoms. 03/05/2023: Anxiety - 6-7/10 Average sleep 3 hrs per night : 8/10 Medication changes today: None Insight-oriented, supportive counseling provided. Continued management as discussed Assessment & Plan (11/19/2023 9:43 AM CDT): Chronic condition with persistent symptoms. 03/05/2023: Anxiety - 6-7/10 Average sleep 3 hrs per night : 8/10 Medication changes today: has not been taking Zoloft - I know that when I was on it works. Re-start Zoloft 50 mg daily. Re-start Propranolol LA 60 mg daily. Insight-oriented, supportive counseling provided. Continued management as discussed Assessment & Plan (03/05/2023 2:03 PM SAP SENIOR DEVELOPER): Chronic condition with persistent, but stable symptoms. Functioning at or close to baseline at this time. Feels agitated. 03/05/2023: Anxiety - 6-7/10 Average sleep 3 hrs per night Medication changes today: none Insight-oriented, supportive counseling provided. Continued management as discussed Assessment & Plan (11/20/2022 2:13 PM CDT): Chronic condition with persistent, but stable symptoms. Medication changes today: none Insight-oriented, supportive counseling provided. Continued management as discussed Assessment & Plan (09/23/2022 12:34 PM CDT): Chronic condition with persistent symptoms. Medication changes today: none Insight-oriented, supportive counseling provided. Continued management as discussed Assessment & Plan (04/18/2022 9:21 AM SAP SENIOR DEVELOPER): Chronic condition with persistent symptoms. Medication changes today: None Insight-oriented, supportive counseling provided. Continued management as discussed Assessment & Plan (12/26/2021 10:39 AM CDT): Chronic condition, currently stable. Newer job - stress currently manageable. 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 The patient does not report any worsening anxiety at this time. Medication changes today: None - already taking Zoloft + hydroxyzine as needed Supportive, insight-oriented counseling provided in the office today. Ongoing monitoring of treatment will be provided. The patient has been advised to contact the office for any concerns between now and next scheduled appointment. The patient verbalized an understanding of the plan developed today and agreed to follow up as recommended. Assessment & Plan (12/18/2020 9:13 AM CDT): Chronic, persistent. Rule out illness anxiety disorder versus somatic symptom disorder. Continue current management. Continue to monitor. Assessment & Plan (11/20/2020 10:17 AM CDT): Chronic, persistent. Continue Zoloft 50 mg daily. Start Propranolol LA for HTN and this condition. Continue to monitor. Therapy warranted. Assessment & Plan (09/10/2020 2:52 PM CDT): Chronic condition, stable symptoms. No change to treatment. Continue to monitor. Ocular hypertension, bilateral 06/20/2020 Overview (08/08/2020): HVF without VF defect 08/08/2020 OCT RNFL with normal avg thickness 06/24/2020 Gonio 08/08/20 heavy pigment in both eyes Pachy 08/08/20 617/622 Assessment & Plan (08/08/2020 9:37 AM CDT): Continuing work-up for OHTN and strong Fam Hx of glaucoma (parents, grandparents) - today, IOP remains in low 20s - OCT RNFL at last visit with 83/77 avg thickness -- stable from last OCT here in 2017 - HVF today without glaucomatous defect. Open gonio with heavy pigment, thick CCT - overall low risk - IOP in low 20s may be falsely elevated in the setting of thick CCT Plan: -- CTM off of treatment for now -- RTC 1 year for disc photos OU and DFE -- at subsequent visits can alternate OCT RNFL and HVF annually so each test occurs every other year Assessment & Plan (06/24/2020 8:20 AM SAP SENIOR DEVELOPER): With associated headaches, decreased visual acuity OD. Resolved spontaneously within 36 hours -- suspect migraine related. Also here to establish care for OHTN and strong Fam Hx of glaucoma (parents, grandparents) - today with 20/20 VA with correction (cc) OU, IOP - OCT RNFL with 83/77 avg thickness -- stable from last OCT here in 2017 - will complete glaucoma work-up at next visit, consider initiating treatment pending HVF results Plan: -- CTM off of treatment for now -- RTC 6 weeks for HVF 24-2, gonio, pachy Pneumonia due to COVID-19 virus 03/08/2020 Obesity (BMI 35.0-39.9 without comorbidity) 02/24 Assessment & Plan (05/12/2024 10:56 AM SAP SENIOR DEVELOPER): Chronic, persistent. Focus on lifestyle modification including changes to diet, incorporate regularly scheduled exercise, obtain sufficient sleep/maintaining proper sleep hygiene, and reduce overall level of stress. Increase Mounjaro from 7.5 mg subcutaneous once weekly to 10 mg subcutaneous once weekly. Tolerating well and without side effects. I discussed the use of Mounjaro for the treatment of the patient's condition. In doing so, I discussed all of the information in the prescribing information package insert including the following. Mounjaro (Tirzepatide) causes thyroid C-cell tumors in rats. It is unknown whether Mounjaro causes thyroid C-cell tumors, including medullary thyroid carcinoma (MTC), in humans as the human relevance of tirzepatide-induced rodent thyroid C-cell tumors has not been determined. Mounjaro is contraindicated in patients with a personal or family history of MTC or in patients with Multiple Endocrine Neoplasia syndrome type 2 (MEN 2). Junior Technical Writer patients regarding the potential risk of MTC and symptoms of thyroid tumors. The patient does not report any known history of multiple endocrine neoplasia syndrome type 2 in the family history. I have informed the patient of the potential adverse risk of developing pancreatitis, hypoglycemia, gastrointestinal distress/discomfort/pain, and cholecystitis. I also informed the patient of the most commonly reported adverse reactions, reported in >=5% of patients treated with Mounjaro as follows: nausea, diarrhea, decreased appetite, vomiting, constipation, dyspepsia, and abdominal pain. If any of these are to develop, the patient will discontinue the medication, seek urgent medical care as needed, and promptly advise me of the development of any of these so that treatment can be adjusted accordingly. The patient verbalized an understanding of the risks in using this medication and wishes to proceed. Monitor at interval as discussed. Assessment & Plan (03/05/2023 2:08 PM SAP SENIOR DEVELOPER): Chronic, persistent. Focus on lifestyle modification including changes to diet, incorporate regularly scheduled exercise, obtain sufficient sleep/maintaining proper sleep hygiene, and reduce overall level of stress. Increase Mounjaro from 7.5 mg subcutaneous once weekly to 10 mg subcutaneous once weekly. Tolerating well and without side effects. I discussed the use of Mounjaro for the treatment of the patient's condition. In doing so, I discussed all of the information in the prescribing information package insert including the following. Mounjaro (Tirzepatide) causes thyroid C-cell tumors in rats. It is unknown whether Mounjaro causes thyroid C-cell tumors, including medullary thyroid carcinoma (MTC), in humans as the human relevance of tirzepatide-induced rodent thyroid C-cell tumors has not been determined. Mounjaro is contraindicated in patients with a personal or family history of MTC or in patients with Multiple Endocrine Neoplasia syndrome type 2 (MEN 2). Junior Technical Writer patients regarding the potential risk of MTC and symptoms of thyroid tumors. The patient does not report any known history of multiple endocrine neoplasia syndrome type 2 in the family history. I have informed the patient of the potential adverse risk of developing pancreatitis, hypoglycemia, gastrointestinal distress/discomfort/pain, and cholecystitis. I also informed the patient of the most commonly reported adverse reactions, reported in >=5% of patients treated with Mounjaro as follows: nausea, diarrhea, decreased appetite, vomiting, constipation, dyspepsia, and abdominal pain. If any of these are to develop, the patient will discontinue the medication, seek urgent medical care as needed, and promptly advise me of the development of any of these so that treatment can be adjusted accordingly. The patient verbalized an understanding of the risks in using this medication and wishes to proceed. Monitor at interval as discussed. Assessment & Plan (11/20/2022 2:16 PM CDT): Chronic, persistent. Increase Mounjaro - off-label use discussed with the patient. Wishes to proceed. Understands that it does not have an FDA indication for weight loss, but he is familiar with the medication and understands how it works. Continue to focus on lifestyle modification including changes to diet, incorporating regularly scheduled exercise, optimizing sleep and obtaining sufficient sleep/maintaining proper sleep hygiene, and mitigating in reducing overall level of stress. Monitor at interval as discussed. Assessment & Plan (11/10/2022 4:19 PM CDT): Chronic, persistent. Trial of Mounjaro - off-label use discussed with the patient. Wishes to proceed. Understands that it does not have an FDA indication for weight loss, but he is familiar with the medication and understands how it works. Focus on lifestyle modification including changes to diet, incorporate regularly scheduled exercise, obtain sufficient sleep/maintaining proper sleep hygiene, and reduce overall level of stress. Monitor at interval as discussed. Acute respiratory failure with hypoxia 0 PTSD (post-traumatic stress disorder) 03/08/2020 Assessment & Plan (08/11/2024 8:23 AM CDT): Chronic condition, persistent symptoms. +continued issues with sleep - quality better with surgeries, but not a lot of hours. Continue prazosin. Monitor at interval. Assessment & Plan (11/19/2023 9:44 AM CDT): Chronic condition, persistent symptoms. +nightmares - not helping with getting sleep. Only sleeping a few hours per night. Restart prazosin. Monitor at interval. Assessment & Plan (03/05/2023 2:01 PM SAP SENIOR DEVELOPER): Chronic condition, no change to management. Continue to monitor. Assessment & Plan (11/20/2022 2:14 PM CDT): Chronic, persistent. Still having nightmares, but not impeding the patient's ability to function-still working. Monitor at interval. Assessment & Plan (12/26/2021 10:40 AM CDT): Chronic, persistent +nightmares Restart Prazosin 1-2 mg HS and titrate up for effectiveness. Monitor in 1 month. Assessment & Plan (11/20/2020 10:14 AM CDT): Chronic, persistent. 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 ADRIANA = 6 Obstructive sleep apnea 03/08/2020 Assessment & Plan (11/19/2023 9:41 AM CDT): Chronic, persistent. Did not qualify for Inspire - so not able to proceed. 11/19/2023: Scheduled for UPPP surgery 12/01/2023. Will do another sleep study after surgery/healed. Monitor at interval. Assessment & Plan (03/05/2023 2:02 PM SAP SENIOR DEVELOPER): Chronic, persistent. Would like to pursue Inspire. The patient is going to call ENT today - read him the letter that essentially said to call to schedule. Assessment & Plan (01/11/2023 4:58 PM CDT): Acute, severe, untreated. I recommend treatment and would advise an in-lab titration study to reduce the sleep apneas. I spoke at length the need for a titration study to ensure that sleep apnea is treated. He has concerns that he is previously been intolerant to CPAP device/machine. However, he is willing to again try to treated with CPAP. Previously has failed CPAP - would like to consider Inspire. I have also provided referral for evaluation with ENT regarding inspire. I will meet with him after the study has been completed to facilitate a treatment plan. Assessment & Plan (11/20/2022 2:14 PM CDT): Sleep study has been ordered and the patient will call to try to make arrangements today to crop picker the equipment so that it can be completed at home. Monitor at interval as discussed. Assessment & Plan (09/23/2022 12:34 PM CDT): Sleep study re-ordered. I know I have to get in there. If they call me, I will get in there. Assessment & Plan (04/18/2022 9:21 AM SAP SENIOR DEVELOPER): Chronic condition, persistent symptoms. Sleep study ordered. Assessment & Plan (09/05/2020 9:46 AM CDT): Would benefit from getting mask and machine that works. Does not use because of mask that is too big and does not fit and machine that is too loud. Previously had a machine that was quieter and less disruptive and a mask that was more comfortable. ADHD and weight loss more challenging with untreated WENDY Had been seeing sleep specialist in [place]. Refer to Dr Ibarra or repeat PSG - has had study within last year. Get records from treating doc. COVID-19 03/07/2020 Assessment & Plan (03/07/2020 10:45 AM SAP SENIOR DEVELOPER): Patient diagnosed with COVID on 03/01/2020. Increasing SOB. Discussed use of prednisone taper as well as albuterol inhaler.Able to complete full sentences during our conversation and Patient verbalized understanding. I explained to patient if SOB worsens or chest pain is persistent he should report to the ED for reevaluation due to risk associated with COVID. Patient verbalized understanding and agreed to plan of care at this time. Encounters Date Type Department Care Team Description 08/14/2024 9:30 AM CDT Procedure visit [facility] Otolaryngology [address] [place] [address] Medical Office Building [address] [place] [phone] Yvan Jackson Au.D. 08/11/2024 8:15 AM CDT Telemedicine [facility] [address] [facility] [address] [place] [phone] Dani Cavanaugh MD ADHD, adult residual type (Primary Dx); Persistent depressive disorder; Generalized anxiety disorder; PTSD (post-traumatic stress disorder) 06/26/2024 9:30 AM SAP SENIOR DEVELOPER Procedure visit [facility] Otolaryngology [address] [place] [address] Medical Office [address] [place] [phone] Yvan Jackson Au.D. Sensorineural hearing loss (SNHL) of both ears (Primary Dx) 06/08/2024 4:00 PM SAP SENIOR DEVELOPER Procedure visit [facility] Otolaryngology [address] [facility] Medical Office Building [address] [place] [address] Yvan Jackson Au.D. Sensorineural hearing loss (SNHL) of both ears (Primary Dx) 05/25/2024 8:34 AM SAP SENIOR DEVELOPER - 05/25/2024 10:58 AM SAP SENIOR DEVELOPER Emergency [facility] Emergency Department [address] [place] [address] Jose Gleason MD Other migraine with status migrainosus, not intractable (Primary Dx) Discharge Disposition: Discharge to home or self care from Last 3 Months Immunizations Immunization Administration Dates Next Due PPD TEST 12/03/2017 Surgical History Surgery Date Site/Laterality Comments NM APPENDECTOMY 04/26/2003 - 04/25/2004 Appendectomy - (Added by TW Conv) LONG HEAD BICEPS TENOTOMY 04/26/2015 - 04/25/2016 Right CLAVICLE EXCISION 04/26/2015 - 04/25/2016 Right SHOULDER ARTHROSCOPY W/ SUPERIOR LABRAL ANTERIOR POSTERIOR REPAIR 04/26/2014 - 04/25/2015 Bilateral 2011 UPPER ENDOSCOPY W/ BANDING 07/21/2023 DRUG INDUCED SLEEP ENDOSCOPY SEPTOPLASTY 07/21/2023 SINUS SURGERY Medical History Medical History Date Comments Personal history of other di seases of the circulatory system History of hypertension - (A dded by TW Conv) Migraines Sleep apnea PTSD (post-traumatic stress disorder) Adhd Severe recurrent major depre ssion without psychotic features (HCC) 06/26/2020 Allergic rhinitis Sinusitis Obesity Acid indigestion Appendicitis Anxiety Sleep apnea PONV (postoperative nausea a nd vomiting) Tinnitus GERD (gastroesophageal reflu x disease) HL (hearing loss) Sleep difficulties Family History Medical History Relation Name Comments Allergies Brother Terrance Lilly Mental illness Brother Terrance Lilly FH: mental illness - (Added by TW Conv) Alcohol abuse Father Mauri Lilly Family histo ry of alcoholism - (Added by TW Conv) Allergies Father Mauri Lilly Arthritis Father Mauri Lilly Family histor y of arthritis - (Added by TW Conv) Diabetes Father Mauri Lilly Heart disease Father Mauri Lilly Heart attack , prob in his early to mid 40's Heart failure Father Mauri Lilly Hyperlipidemia Father Mauri Lilly Hypertension Father Mauri Lilly Family histor y of hypertension - (Added by Conv) Lung disease Father Mauri Lilly COPD Snoring Father Mauri Lilly Alcohol abuse Maternal Grandfather Desmond Velten Fam angela history of alcoholism - Relation: Grandfather (Added by Conv) Cancer Maternal Grandfather Desmond Velten Fami ly history of malignant neoplasm - Relation: Grandfather (Added by Conv) Heart disease Maternal Grandfather Desmond Velten Fam angela history of cardiac disorder - Relation: Grandfather (Added by Conv) Hypertension Maternal Grandfather Desmond Velten Fami ly history of hypertension - Relation: Grandfather (Added by Conv) Diabetes Maternal Grandmother Jeanne Velten Hearing loss Maternal Grandmother Jeanne Velten Heart disease Maternal Grandmother Jeanne Velten Hypertension Maternal Grandmother Jeanne Velten Allergies Mother Amy Rey Anesthesia problems Mother Amy Rey hypot ension, intraop awareness Asthma Mother Amy Rey Diabetes Mother Amy Rey Gout Mother Amy Rey Family histo ry of gout - (Added by ) Graves' disease Mother Amy Rey Family hi story of Graves' disease - (Added by ) Kidney disease Mother Amy Rey Family his tory of kidney disease - (Added by ) Mental illness Mother Amy Rey FH: mental illness - (Added by ) Thyroid disease Mother Amy Rey Heart disease Other 1 Family history of cardiac disorder - Relation: Grandparent (Added by Conv) Heart disease Other 2 Family history of cardiac disorder - Relation: Grandmother (Added by Conv) Arthritis Other 3 Family history of arthritis - Relation: Grandmother (Added by Conv) Hypertension Other 4 Family history of hypertension - Relation: Grandparent (Added by Conv) Hypertension Other 5 Family history of hypertension - Relation: Grandmother (Added by Conv) Lung disease Other 6 Family history of lung disease - Relation: Grandmother (Added by Conv) Blood Clot Other 7 Family history of blood clots - Relation: Grandmother (Added by Conv) Stroke Other 8 Family history of cerebrovascular accident (CVA) - Relation: Grandmother (Added by Conv) Bleeding Disorder Other 9 Bleeding d isorder - Relation: Grandmother (Added by TW Conv) Diabetes Other 10 Family history of diabetes mellitus - Relation: Grandmother (Added by TW Conv) Cancer Paternal Grandfather Wilfrid Lilly Hearing loss Paternal Grandfather Wilfrid Lilly Heart disease Paternal Grandfather Wilfrid Lilly Hyperlipidemia Paternal Grandfather Wilfrid Lilly Hypertension Paternal Grandfather Wilfrid Lilly Hearing loss Paternal Grandmother Marixa Rust Heart disease Paternal Grandmother Marixa Rust Hyperlipidemia Paternal Grandmother Marixa Rust Hypertension Paternal Grandmother Marixa Rust Stroke Paternal Grandmother Marixa Rust Mental illness Sister FH: mental il lness - (Added by TW Conv) Malig Hypertension Neg Hx Malig Hyperthermia Neg Hx Pseudochol deficiency Neg Hx Relation Name Status Comments Brother Terrance Lilly Alive Father Mauri Lilly Maternal Grandfather Desmond Ventura Maternal Grandmother Jeanne Ventura Mother Amy Rey Alive Other 1 Other 2 Other 3 Other 4 Other 5 Other 6 Other 7 Other 8 Other 9 Other 10 Paternal Grandfather Wilfrid Lilly Paternal Grandmother Marixa Tinajero Sister Social History Tobacco Use Types Packs/Day Years Used Date Smoking Tobacco: Never Smokeless Tobacco: Never Tobacco Cessation:Counseling Given: Not Answered Alcohol Use Standard Drinks/Week Comments Yes 0 (1 standard drink = 0.6 oz pur e alcohol) socially, not even once a week AUDIT-C Answer Date Recorded Q1: How often do you have a drink containing alc ohol? Monthly or less 11/19/2023 Q2: How many drinks containi ng alcohol do you have on a typical day when you are drinking? 1 or 2 11/19/2023 Q3: How often do you have si x or more drinks on one occasion? Never 11/19/2023 PHQ-2 Answer Date Recorded PHQ-2 Total Score (If total score is 3 or more points, staff should administer the PHQ-9) 0 03/08/2020 Personal Safety Answer Date Recorded Have you ever been in or are you currently in a harmful physical or emotional relationship or is someone making you feel afraid or unsafe? Denies 05/25/2024 Sex and Gender Information Value Date Recorded Sex Assigned at Not on file Legal Sex Male 10:21 AM SAP SENIOR DEVELOPER Gender Identity Male 08/30/2020 7:49 PM CDT Sexual Orientation Straight 08/30/2020 7: 49 PM CDT Obstetrics History Last Filed Vital Signs Vital Sign Reading Time Taken Comments Blood Pressure 157/92 05/25/2024 9:33 AM SAP SENIOR DEVELOPER Pulse 80 05/25/2024 9:33 AM SAP SENIOR DEVELOPER Temperature 36.8 C (98.2 F) 05/25/2024 6:42 AM SAP SENIOR DEVELOPER Respiratory Rate 18 05/25/2024 9:33 AM SAP SENIOR DEVELOPER Oxygen Saturation 98% 05/25/2024 9:33 AM SAP SENIOR DEVELOPER Inhaled Oxygen Concentration - - Weight 108.9 kg (240 lb) 05/25/2024 6:42 AM SAP SENIOR DEVELOPER Height 177.8 cm (5' 10 ) 05/25/2024 6:42 AM SAP SENIOR DEVELOPER Body Mass Index 34.44 05/25/2024 6:42 AM SAP SENIOR DEVELOPER Plan of Treatment Health Maintenance Due Date Last Done Comments Hepatitis C Screening 1989 Varicella Vaccines (1 of 2 - 13+ 2-dose series) 2002 DTaP/Tdap/Td Vaccine (6 - Tdap) 11/13/2003 11/12/2003, 07/01/1994, 04/07/1991, Additional history exists Regular Well Visit/Exam 18-64 2007 Depression Screening 03/07/2021 03/07/2020 Influenza Vaccine (Season Ended) 2024 01/25/2018 Hepatitis B Screening Completed 08/07/1999 , 03/19/1999, 02/13/1999 HPV Vaccines Aged Out No longer eligi ble based on patient's age to complete this topic Pneumococcal vaccine <65 Aged Out No longer eligible based on patient's age to complete this topic Medical Devices Implanted Type Area Production Support Specialist Device Identifier Shelf Expiration Date Model / Serial / Lot [id number] [employer] Encore Suspension Adjustable Knotless Bone [place] Self Guided [id number] - [id number] Implanted:Qty: 1 on 12/01/2023 by Tawnya Boo MD at [facility] [employer] [id number] 05/26/2024 [id number] / / [id number] Insurance [employer] BLUE ACCESS OOS [facility] BLUE ACCESS OOS [employer] Puppet OOS Advance Directives For more information, please contact: [phone] * Full Code (Latest Code Status on File) Date Activated Date Inactivated Comments 12/01/2023 3:39 PM 12/02/2023 2:25 PM * Full Code Date Activated Date Inactivated Comments 03/08/2020 4:11 AM 03/11/2020 5:42 PM Care Teams Coding Auditor Relationship Specialty Start Date End Date Lupe Reyez MD PCP - General 11/09/16
--- OUTSIDE RECORDS SUMMARY | 2024-08-15 09:03 | XMS_ITS | Referral Summary ---
Author Organization [facility] Address [address] [place] [address] Care Team Providers Care Manager Creative Services Name Role Phone Lupe Reyez MD Primary Care Provider + Encounters Date Type Department Care Team Description 08/14/2024 9:30 AM CDT Procedure visit [facility] Otolaryngology [address] [place] [address] Medical Office [address] [place] [address] Yvan Jackson Au.D. 08/11/2024 8:15 AM CDT Telemedicine [facility] [address] [place], [place] [phone] Dani Cavanaugh MD ADHD, adult residual type (Primary Dx); Persistent depressive disorder; Generalized anxiety disorder; PTSD (post-traumatic stress disorder) 06/26/2024 9:30 AM COMMUNICATIONS AGENT Procedure visit [facility] Otolaryngology [address] [place] [address] Office [address] [place] [phone] Yvan Jackson Au.D. Sensorineural hearing loss (SNHL) of both ears (Primary Dx) 06/08/2024 4:00 PM COMMUNICATIONS AGENT Procedure visit [facility] Otolaryngology [address] [place] [address] Office [address] [place] [phone] Yvan Jackson Au.D. Sensorineural hearing loss (SNHL) of both ears (Primary Dx) 05/25/2024 8:34 AM COMMUNICATIONS AGENT - 05/25/2024 10:58 AM [facility] Emergency [facility] Emergency Department [address] [place] [address] Jose Gleason MD Other migraine with status migrainosus, not intractable (Primary Dx) Discharge Disposition: Discharge to home or self care from Last 3 Months Allergies Active Allergy Reactions Criticality Noted Date [...] mouth nightly as needed (nightmares) 270 capsule 11 11/19/19 24 027 Active propranolol LA (INDERAL LA) 60 mg 24 hr capsule Take 1 capsule (60 mg total) by mouth daily 90 capsule 11 11/19/19 24 027 Active Additional Information Patient taking differently:60 mg oralEvery morning, Indications: hypertension, anxiety, Informant: Self, Reported on 03/27/2024 sertraline (ZOLOFT) 50 mg tablet Take 1 tablet (50 mg total) by mouth daily 90 tablet 11 11/19/19 24 027 Active Additional Information Patient taking differently:50 [...] today. Assessment & Plan (05/12/2024 10:55 AM COMMUNICATIONS AGENT): Chronic, persistent symptoms including several of the [...] areas of functioning. 03/05/2023: Depression - -11/0211/19/2023: The patient denies current suicidal ideation. The [...] today. Assessment & Plan (02/27/2024 10:57 PM COMMUNICATIONS AGENT): Chronic, persistent symptoms including several of the [...] areas of functioning. 03/05/2023: Depression - -11/0211/19/2023: The patient denies current suicidal ideation. +thinking [...] areas of functioning. 03/05/2023: Depression - 6-11/0211/19/2023: 7-12/03 The patient denies current suicidal ideation. +thinking [...] today. Assessment & Plan (03/05/2023 2:06 PM COMMUNICATIONS AGENT): Chronic, persistent symptoms including several of the [...] important areas of functioning. 03/05/2023: Depression - 6-11/02 The patient denies current suicidal ideation. The [...] 12/26/2021 Assessment & Plan (03/05/2023 2:04 PM COMMUNICATIONS AGENT): Chronic, persistent. Poor sleep. Affecting quality of [...] in the past. Consideration for CBTi at [facility] in the future when the patient [...] discussed. Assessment & Plan (05/12/2024 10:56 AM COMMUNICATIONS AGENT): Chronic, persistent symptoms of inattention, distractibility, inability [...] discussed. Assessment & Plan (02/27/2024 10:56 PM COMMUNICATIONS AGENT): Chronic, persistent symptoms of inattention, distractibility, inability [...] discussed. Assessment & Plan (03/05/2023 2:02 PM COMMUNICATIONS AGENT): Chronic, persistent symptoms of inattention, distractibility, inability [...] discussed. Assessment & Plan (04/18/2022 9:20 AM COMMUNICATIONS AGENT): Chronic, persistent symptoms of inattention, distractibility, inability [...] prescription sent to [facility]. Months to in sent to [facility] mail-in pharmacy. Severe recurrent major depre ssion without psychotic features 06/26/2020 Generalized anxiety disorder 06/26/2020 Assessment & Plan (08/11/2024 8:23 AM CDT): Chronic condition with persistent symptoms. Denies any worsening symptoms. Medication changes today: None 08/11/2024: 4/10 Insight-oriented, supportive counseling provided. Continued management as discussed Assessment & Plan (05/12/2024 10:56 AM COMMUNICATIONS AGENT): Chronic condition with persistent symptoms. Denies any worsening symptoms. Medication changes today: None Insight-oriented, supportive counseling provided. Continued management as discussed Assessment & Plan (02/27/2024 10:56 PM COMMUNICATIONS AGENT): Chronic condition with persistent symptoms. Denies any [...] discussed Assessment & Plan (03/05/2023 2:03 PM COMMUNICATIONS AGENT): Chronic condition with persistent, but stable symptoms. [...] discussed Assessment & Plan (04/18/2022 9:21 AM COMMUNICATIONS AGENT): Chronic condition with persistent symptoms. Medication changes [...] year Assessment & Plan (06/24/2020 8:20 AM COMMUNICATIONS AGENT): With associated headaches, decreased visual acuity OD. Resolved spontaneously within 36 hours -- suspect migraine related. Also here to establish care for OHTN and strong Fam Hx of glaucoma (parents, grandparents) - today with 20/20 VA with correction (cc) OU, IOP 22/19 - OCT RNFL with 83/77 avg thickness -- stable from last OCT here in 2016 - will complete glaucoma work-up at next visit, consider initiating treatment pending HVF results Plan: -- CTM off of treatment for now -- RTC 6 weeks for HVF 24-2, gonio, pachy Pneumonia due to COVID-19 virus 03/08/2020 Obesity (BMI 35.0-39.9 without comorbidity) 02/24 Assessment & Plan (05/12/2024 10:56 AM COMMUNICATIONS AGENT): Chronic, persistent. 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 Psychiatric Attendant patients regarding the potential risk of MTC [...] discussed. Assessment & Plan (03/05/2023 2:08 PM COMMUNICATIONS AGENT): Chronic, persistent. 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 Psychiatric Attendant patients regarding the potential risk of MTC [...] interval. Assessment & Plan (03/05/2023 2:01 PM COMMUNICATIONS AGENT): Chronic condition, no change to management. 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. ADRIANA = 6 Obstructive sleep apnea 03/08/2020 Assessment & Plan (11/19/2023 9:41 AM CDT): Chronic, persistent. Did not qualify for Inspire - so not able to proceed. 11/19/2023: Scheduled for UPPP surgery 12/01/2023. Will do another sleep study after surgery/healed. Monitor at interval. Assessment & Plan (03/05/2023 2:02 PM COMMUNICATIONS AGENT): Chronic, persistent. Would like to pursue Inspire. [...] to try to make arrangements today to sheepskin pickler the equipment so that it can be completed at home. Monitor at interval as discussed. Assessment & Plan (09/23/2022 12:34 PM CDT): Sleep study re-ordered. I know I have to get in there. If they call me, I will get in there. Assessment & Plan (04/18/2022 9:21 AM COMMUNICATIONS AGENT): Chronic condition, persistent symptoms. Sleep study ordered. [...] WENDY Had been seeing sleep specialist in [place]. Refer to Dr Ibarra or repeat PSG - has had study within last year. Get records from treating doc. COVID-19 03/07/2020 Assessment & Plan (03/07/2020 10:45 AM COMMUNICATIONS AGENT): Patient diagnosed with COVID on 03/01/2020. Increasing [...] to plan of care at this time. Immunizations Immunization Administration Dates Next Due PPD TEST 12/03/2017 Social History Tobacco Use Types Packs/Day Years [...] on file Legal Sex Male 10:21 AM COMMUNICATIONS AGENT Gender Identity Male 08/30/2020 7:49 PM CDT Sexual Orientation Straight 08/30/2020 7: 49 PM CDT Last Filed Vital Signs Vital Sign Reading Time Taken Comments Blood Pressure 157/92 05/25/2024 9:33 AM COMMUNICATIONS AGENT Pulse 80 05/25/2024 9:33 AM COMMUNICATIONS AGENT Temperature 36.8 C (98.2 F) 05/25/2024 6:42 AM COMMUNICATIONS AGENT Respiratory Rate 18 05/25/2024 9:33 AM COMMUNICATIONS AGENT Oxygen Saturation 98% 05/25/2024 9:33 AM COMMUNICATIONS AGENT Inhaled Oxygen Concentration - - Weight 108.9 kg (240 lb) 05/25/2024 6:42 AM COMMUNICATIONS AGENT Height 177.8 cm (5' 10 ) 05/25/2024 6:42 AM COMMUNICATIONS AGENT Body Mass Index 34.44 05/25/2024 6:42 AM COMMUNICATIONS AGENT Plan of Treatment Not on file Medical Devices Implanted Type Area Eyelet Machine Operator Device Identifier Shelf Expiration Date Model / Serial / Lot Mr [employer] Encore Suspension Adjustable Knotless Bone [place] Self Guided [id number] - [id number] Implanted:Qty: 1 on 12/01/2023 by Tawnya Boo MD at [facility] [employer] [id number] 05/26/2024 [id number] / / [id number] Insurance [facility] BRONX ACCESS OOS [facility] [employer] ACCESS OOS [employer] OOS Advance Directives For more information, please contact: [phone] * Full Code (Latest Code Status on File) Date Activated Date Inactivated Comments 12/01/2023 3:39 PM 12/02/2023 2:25 PM * Full Code Date Activated Date Inactivated Comments 03/08/2020 4:11 AM 03/11/2020 5:42 PM Care Teams Manager Creative Services Relationship Specialty Start Date End Date Lupe Reyez MD PCP - General 11/09/16
--- OUTSIDE RECORDS SUMMARY | 2024-08-15 09:03 | XMS_ITS | Encounter Summary ---
Author Organization [facility] Address [address] [place] [address] Phone Care Team Providers Care Medical Associate Name Role Phone Lupe Reyez MD Primary Care Provider + Reason for Visit * Consultation (Routine) - Authorized Specialty Diagnoses / Procedures Referred By Pan simon Referred To Contact Audiology Diagnoses Evaluation of hearing impairment Lupe Reyez MD [address] [facility] [address] [address] Phone: tel: fax: [facility] (All Locations) Referral ID Status Reason Start Date Expiration Date Visits Requested Visits Authorized [id number] Authorized Specialty Services Required 4 04/12/2025 12 12 Encounter Details Date Type Department Care Team (Late st Contact Info) Description 08/14/2024 9:30 AM CDT Procedure visit [facility] Otolaryngology [address] [facility] Medical Office Building [address] [place] [address] Yvan Jackson Au.D. 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
--- OUTSIDE RECORDS SUMMARY | 2024-08-15 09:03 | XMS_ITS | Continuity of Care Document ---
Author Name [facility] Organization [facility] Care Team Providers Care Ordinary Seaman Name Role Phone [facility] Unavailable Unavailable Problems Combined list of problems from Department of Defense and Veterans Affairs facilities. It does not include entries that were removed or entered in error. 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 2011 intially diagnosed. 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 Condition Unknown Organization Migraine (SNOMED CT 03111310) Active 013 Condition Unknown Organization Solitary nodule of lung (SNOMED CT 967220320) Active 013 Condition Unknown Organization Cellulitis and abscess of face (ICD-9-CM 682.0) Active 012 Condition Unknown Organization CONSTIPATION, unspecified (ICD-9-CM 564.00) Active 012 Condition Unknown Organization Hemorrhoids * (ICD-9-CM 455.6) Active 012 Condition Unknown Organization Low Back Pain * (ICD-9-CM 724.2) Active 011 Condition Unknown Organization Pain in joint * (ICD-9-CM 719.40) Active 011 Condition Unknown Organization Elevated Liver Function Tests Active 011 Condition Unknown Organization Sexual Dysfunction NOS (ICD-9-CM 302.9/302.70) Active 011 Condition Unknown Organization HTN Active 011 Condition Unknown Organization Knee pain (SNOMED CT 03096521) Active 011 Condition Unknown Organization PTSD Active 011 Condition Unknown Organization Pain in joint involving shoulder region3 Active 011 Condition 05/19/2010 - MAYA MUKHERJEE
right shoulder, had surgery in 2009 Unknown Organization Allergic rhinitis Active Condition [facility] Ankle joint pain (SNOMED CT 007709368) Active Condition [facility] Auditory hallucinations (SNOMED CT 16591309) Active Condition Jul 26, 2014 Entered By: MICHELLE GRESHAM Comment: transient, resolving without treatment by history [facility] Cellulitis and abscess of face (ICD-9-CM 682.0) Active Condition [facility] CONSTIPATION, unspecified (ICD-9-CM 564.00) Active Condition [facility] Elevated Liver Function Tests Active Condition [facility] Encounters for unspecified Administrative Purpose (ICD-9-CM V68.9) Active Condition [facility] Foot pain (SNOMED CT 61766897) Active Condition [facility] Headache disorder (SNOMED CT 443028752) Active Condition [facility] Hemorrhoids * (ICD-9-CM 455.6) Active Condition [facility] HTN Active Condition [facility] Insomnia Active Condition [facility] Knee Pain Active Condition [facility] Knee pain (SNOMED CT 24624090) Active Condition [facility] Low Back Pain * (ICD-9-CM 724.2) Active Condition [facility] Migraine (SNOMED CT 86555390) Active Condition [facility] Pain in joint * (ICD-9-CM 719.40) Active Condition [facility] Pain in joint involving shoulder region Active Condition May 19, 2010 Entered By: MAYA MUKHERJEE Comment: right shoulder, had surgery in 2009 [facility] Personality disorder Active Condition Jul 22, 2014 Entered By: MICHELLE GRESHAM Comment: with cluster b traits. 2011 intially diagnosed. [facility] PTSD Active Condition [facility] Sexual Dysfunction NOS (ICD-9-CM 302.9/302.70) Active Condition [facility] Sleep Apnea W/Hypersomnia Active Condition [facility] Solitary nodule of lung (SNOMED CT 979903334) Active Condition [facility] Stress and adjustment reaction Active Condition [facility] Transient global amnesia (SNOMED CT 714049428) Active Condition [facility] POST-TRAUMATIC STRESS DISORDER Active Condition DoD Patient Counseling: Inquiry & Counseling Inactive Condition DoD visit for: administrative purpose Inactive Condition DoD anxiety Inactive Condition DoD HEADACHE SYNDROMES Inactive Condition Do D headache Inactive Condition DoD ADJUSTMENT DISORDER WITH ANXIETY Inactive Condition DoD MIGRAINE HEADACHE Active Condition DoD ASSESS PATIENT CONDITION WORK-RELATED OCCUPATIONAL DISEASE Active Condition DoD AXIS V GLOBAL ASSESS OF FUNCTIONING (GAF) SCALE ___ (100-0) Inactive Condition DoD ANXIETY DISORDER NOS Inactive Condition DoD visit for: follow-up exam Active Condition DoD visit: ears/hearing exam for hearing conservation, treatment Active Condition DoD SHOULDER SPRAIN ACROMIOCLAVICULAR JOINT Inactive Condition DoD Basic Life / Disability Examination Active Condition DoD CONDITIONS INFLUENCING HEALTH STATUS Active Condition DoD SECONDARY INSOMNIA Inactive Condition Do D SHOULDER SPRAIN ANTERIOR GLENOID LABRUM LESION Active Condition DoD ACUTE PAIN Inactive Condition DoD ASSESSMENT OF PATIENT CONDITION WORK-RELATED Active Condition DoD Other Physical Therapy Active Condition DoD visit for: issue repeat prescription Inactive Condition DoD ASSESSMENT OF PATIENT CONDITION WORK STATUS Active Condition DoD SHOULDER SPRAIN ROTATOR CUFF (CAPSULE) Active Condition DoD SHOULDER SEPARATION CLOSED ACROMIOCLAVICULAR JOINT Active Condition DoD SHOULDER SPRAIN SUPERIOR GLENOID LABRUM LESION Active Condition DoD joint pain, localized in the shoulder Active Condition DoD visit for: examination of subpopulation Active Condition DoD SHOULDER SPRAIN SUPERIOR GLENOID LABRUM LESION RIGHT Inactive Condition DoD SUBLUXATION SHOULDER JOINT Inactive Condition DoD insomnia Inactive Condition DoD SHOULDER SPRAIN ANTERIOR GLENOID LABRUM LESION RIGHT Active Condition DoD accidental needlestick Inactive Condition DoD Patient Education - Medication Active Condition DoD SEBORRHEIC DERMATITIS OF THE SCALP Inactive Condition DoD ACUTE BRONCHITIS Inactive Condition DoD visit for: screening exam Active Condition DoD KNEE SPRAIN LEFT Active Condition pro file, crutches, ice DoD OBESITY Active Condition passes standards DoD pain during urination (dysuria) Active Condition ua gage l will treat symptom. will send for std check even though not sexually active. DoD Overweight Active Condition passed tape--diet/exe rcise DoD TENDONITIS PATELLAR Inactive Condition lft knee DoD ASTIGMATISM Active Condition DoD REFRACTIVE ERROR - MYOPIA Active Condition DoD visit for: routine eye exam Active Condition DoD OVEREXERTION / STRENUOUS MOVEMENT CAUSING EXHAUSTION Inactive Condition PT WITH OVEREXERTION DURING P.T. FLUIDS GIVEN REHYDRATED. COUNSELING ABOUT SX DONE. PT AGEEEABLE, UNDERSTANDS. DoD dizziness Inactive Condition Pt present s with c/o dizziness following morning PT - vital signs c/w orthostasis (more than 10 point change in heart rate from sitting to standing vitals. Will give fluids and reevaluate.Add endum:Pt reports significant improvement in dizziness following fluids. Pt counselled on the importance of maintaining good level of fluid hydration. Pt to f/u prn. DoD visit for: ears / hearing exam Active Condition DoD visit for: services physical Active Condition DoD Patient Counseling: Inactive Condition D oD Allergies, Adverse Reactions, Alerts Combined list of allergies from Department of Defense and Veterans Affairs facilities. It does not include entries that were removed or entered in error. Substance Category Reaction Severity Reaction type Status Date Reported Comments Source BACLOFEN Drug allergy (disorder) active 07/29/2011 [facility] baclofen Drug allergy Active 2 13:57 [facility],R WENDY M

rectal bleeding One or More [facility] Facilities [facility] [place] Drug allergy (disorder) Unknown active 11/27/2008 [facility] [place] OTHER Drug allergy (disorder) Unknown active 11/19/2008 [facility] [place] PERCOCET Drug allergy (disorder) Unknown active 11/27/2008 [facility] [place] VICODIN Drug allergy (disorder) Unknown active 11/27/2008 [facility] [place] Immunizations Combined list of available immunizations from the Department of Defense and Veterans Affairs facilities. Immunization Series Date Given Administered By Site Reaction Lot Number CVX Code Drug Dynamo Tender Status Comments Source INFLUENZA, UNSPECIFIED FORMULATION 2013 88 complet ed [facility] influenza virus vaccine, unspecified 2013 88 complet ed influenza virus vaccine, unspecifi ed 12/25/13 Recorded Ambulat ory Pharmac y INFLUENZA, UNSPECIFIED FORMULATION 2012 88 complet ed employer [facility] influenza virus vaccine, unspecified 2012 88 complet ed Result Comment: employer Ambulat ory Pharmac y INFLUENZA, UNSPECIFIED FORMULATION 2011 88 complet ed [facility] influenza virus vaccine, unspecified 2011 88 complet ed influenza virus vaccine, unspecifi ed 01/25/12 Recorded Ambulat ory Pharmac y INFLUENZA, UNSPECIFIED FORMULATION 2010 88 complet ed [facility] influenza virus vaccine, unspecified 2010 88 complet ed influenza virus vaccine, unspecifi ed 02/09/11 Recorded Ambulat ory Pharmac y HEP A-HEP B 2010 104 complet ed [facility] hepatitis A-hepatitis B vaccine 2010 104 complet ed hepatitis A-hepatit is B vaccine 01/07/11 Recorded Ambulat ory Pharmac y tetanus toxoid, reduced diphtheria toxoid, and acellular pertu is vaccine, adsorbed 1 2010 [id number] Sanofi Pasteur ([facility]) complet ed tetanus toxoid, reduced diphtheri a toxoid, and acellular pertussis vaccine, adsorbed DoD influenza virus vaccine, split virus (incl. purified surface antigen)-reti red CODE 1 2009 [id number] CS [employer] (CS) complet ed influenza virus vaccine, split virus (incl. purified surface antigen)- retired CODE DoD INFLUENZA, UNSPECIFIED FORMULATION 2009 88 complet ed [facility] influenza virus vaccine, unspecified 2009 88 complet ed influenza virus vaccine, unspecifi ed 02/24/10 Recorded Ambulat ory Pharmac y TDAP 2009 115 complet ed [facility] tetanus, diphtheria, acellular pertu is 2009 115 complet ed tetanus, diphtheri a, acellular pertussis 01/24/10 Recorded Ambulat ory Pharmac y TDAP 2009 115 complet ed [facility] tetanus, diphtheria, acellular pertu is 2009 115 complet ed tetanus, diphtheri a, acellular pertussis 12/25/09 Recorded Ambulat ory Pharmac y anthrax vaccine 4 2008 [id number] [employer] [place] ([facility]) complet ed anthrax vaccine DoD measles, mumps and rubella virus vaccine 1 2008 [id number] Merck (MSD) complet ed measles, mumps and rubella virus vaccine DoD hepatitis B vaccine, adult dosage 3 2008 [id number] 43 Liquid [employer] (SKB) complet ed hepatitis B vaccine, adult dosage DoD anthrax vaccine 3 2007 [id number] [employer] ([facility]) complet ed anthrax vaccine DoD anthrax vaccine 2 2007 UNK 24 Miles (MIL) complet ed anthrax vaccine DoD influenza virus vaccine, live, attenuated, for intranasal use 1 2007 [id number] [employer]. (MED) complet ed influenza virus vaccine, live, attenuate d, for intranasa l use DoD anthrax vaccine 1 2007 UNK 24 Miles (MIL) complet ed anthrax vaccine DoD vaccinia (smallpox) vaccine 1 2007 UNK 75 Unknown (UNK) comple t ed vaccinia (smallpox ) vaccine DoD hepatitis B vaccine, adult dosage 2 2007 UNK 43 Unknown (UNK) comple t ed hepatitis B vaccine, adult dosage DoD hepatitis A vaccine, adult dosage 2 2007 UNK 52 Unknown (UNK) comple t ed hepatitis A vaccine, adult dosage DoD typhoid vaccine, unspecified formulation 1 2007 UNK 91 Unknown (UNK) comple t ed typhoid vaccine, unspecifi ed formulati on DoD influenza virus vaccine, split virus (incl. purified surface antigen)-reti red CODE 1 2007 UNK 15 Unknown (UNK) comple t ed influenza virus vaccine, split virus (incl. purified surface antigen)- retired CODE DoD hepatitis B vaccine, adult dosage 1 2007 UNK 43 [facility] ([facility]) complet ed hepatitis B vaccine, adult dosage DoD hepatitis A vaccine, adult dosage 1 2007 UNK 52 [facility] ([facility]) complet ed hepatitis A vaccine, adult dosage DoD tetanus and diphtheria toxoids, adsorbed, preservative free, for adult use (2 Lf of tetanus toxoid and 2 Lf of diphtheria toxoid) 1 2006 [id number] [facility] ([facility]) complet ed tetanus and diphtheri a toxoids, adsorbed, preservat henok free, for adult use (2 Lf of tetanus toxoid and 2 Lf of diphtheri a toxoid) DoD poliovirus vaccine, inactivated 1 2006 [id number] 10 [facility] ([facility]) complet ed polioviru s vaccine, inactivat ed DoD influenza virus vaccine, split virus (incl. purified surface antigen)-reti red CODE 1 2006 UNK 15 Unknown (UNK) comple t ed influenza virus vaccine, split virus (incl. purified surface antigen)- retired CODE DoD varicella virus vaccine 1 2006 UNK 21 Unknown (UNK) Not Given varicella virus vaccine DoD hepatitis B vaccine, adult dosage 1 2006 UNK 43 Unknown (UNK) Not Given hepatitis B vaccine, adult dosage DoD meningococcal polysaccharid e (groups A, C, Y and W-135) diphtheria toxoid conjugate vaccine (MCV4P) 1 2006 [id number] 114 Unknown (UNK) comple t ed meningoco ccal polysacch aride (groups A, C, Y and W-135) diphtheri a toxoid conjugate vaccine (MCV4P) DoD Vital Signs Combined list of inpatient and outpatient Vital Signs from Department of Defense and Veterans Affairs, ranging from 12 months to all on record, depending upon the facility. Vital Sign Value Date Comments Source Systolic Blood Pressure 141 mm[Hg] 07/27/19 15 17:31:58 One or More A Facilities [facility] Diastolic Blood Pressure 71 mm[Hg] 07/26/2014 17:31:58 One or More A Facilities [facility] Systolic Blood Pressure 129 mm[Hg] 07/26/19 15 22:48:52 One or More A Facilities [facility] Diastolic Blood Pressure 67 mm[Hg] 07/25/2014 22:48:52 One or More [facility] Facilities [facility] Systolic Blood Pressure 140 mm[Hg] 07/31/19 15 12:55:36 One or More [facility] Facilities [facility] Diastolic Blood Pressure 80 mm[Hg] 07/30/2014 12:55:36 One or More [facility] Facilities [facility] Systolic Blood Pressure 130 mm[Hg] 07/26/19 15 10:59:55 One or More [facility] Facilities [facility] Diastolic Blood Pressure 77 mm[Hg] 07/25/2014 10:59:55 One or More [facility] Facilities [facility] Systolic Blood Pressure 128 mm[Hg] 07/27/19 15 11:10:53 One or More [facility] Facilities [facility] Diastolic Blood Pressure 71 mm[Hg] 07/26/2014 11:10:53 One or More [facility] Facilities [facility] Systolic Blood Pressure 136 mm[Hg] 08/07/19 15 19:17:00 One or More [facility] Facilities [facility] Diastolic Blood Pressure 86 mm[Hg] 08/06/2014 19:17:00 One or More [facility] Facilities [facility] Systolic Blood Pressure 128 mm[Hg] 07/26/19 15 17:46:01 One or More [facility] Facilities [facility] Diastolic Blood Pressure 72 mm[Hg] 07/25/2014 17:46:01 One or More [facility] Facilities [facility] Systolic Blood Pressure 132 mm[Hg] 07/31/19 15 12:58:44 One or More [facility] Facilities [facility] Diastolic Blood Pressure 73 mm[Hg] 07/30/2014 12:58:44 One or More [facility] Facilities [facility] Systolic Blood Pressure 145 mm[Hg] 08/07/19 15 18:45:01 One or More [facility] Facilities [facility] Diastolic Blood Pressure 88 mm[Hg] 08/06/2014 18:45:01 One or More [facility] Facilities [facility] Systolic Blood Pressure 145 mm[Hg] 08/07/19 15 18:45:02 One or More [facility] Facilities [facility] Diastolic Blood Pressure 88 mm[Hg] 08/06/2014 18:45:02 One or More [facility] Facilities [facility] Encounters Combined list of: 1) Encounters from Department of Veterans Affairs facilities going backup to the last 18 months, not all VA inpatient encounters are included; 2) Encounters from the Department of Defense facilities going backup to 280 months. Location Location Details Encounter Type Encounter Number Reason For Visit Attending Provider ADM Date DC Date Status Disposition Source [facility] Almanzar(Hearin g Conservat ion) OUTPATIENT [id number] [address] [place], [place] [address]T NISHA HEBERT. 09/24 Released w/o Limitations [facility] [place] [place] [place]) OUTPATIENT [id number] dizzine ss/fati anthony MARIAA MAK 11/20 Released w/o Limitations [facility] [place] [place]([facility] Clinic) [place] [address](FMS , [place]) OUTPATIENT [id number] SCALL CHERELLE RAMSEY 07/07 Released w/o Limitations [facility] [place] [address](F MS, [place]) [place] [address](BDO Optometry [facility]) OUTPATIENT [id number] GENTRY Mathews 07/13 Released w/o Limitations [facility] [place] [address](B DO Optomet ry [facility]) [place] [address](FMS , [place]) OUTPATIENT [id number] SCALL ME VAISHNAVIENU 07/25 Released with Work/Duty Limitations [facility] [place] [address](F MS, [place]) [place] [place] [address](FMS , [place]) OUTPATIENT [id number] WALK/TR BOWEN OLIVEIRA 08/21 Released w/o Limitations [facility] [place] [address](F MS, [place]) [place] [address](FMS , [place]) OUTPATIENT [id number] SCALL GRACIELA CULVER 08/29 Released with Work/Duty Limitations [facility] [place] [address](F MS, [place]) [place] [address](BDO [facility]) OUTPATIENT [id number] GRACIELA Fisher 10/06 Released w/o Limitations [facility] [place] [address](B DO [facility]) [facility] Facility OUTPATIENT [id number] 04/07 Released w/o Limitations [facility] OUTPATIENT [id number] 04/15 Released w/o Limitations [facility] OUTPATIENT [id number] 05/24 Released w/o Limitations [facility] OUTPATIENT [id number] 09/13 Released with Work/Duty Limitations [facility] OUTPATIENT [id number] 10/11 Released w/o Limitations [facility] OUTPATIENT [id number] 10/31 Released w/o Limitations [facility] OUTPATIENT [id number] 11/03 Released w/o Limitations [facility] OUTPATIENT [id number] 11/07 Released with Work/Duty Limitations [facility] ) OUTPATIENT [id number] OIF/OEF concuss ion screen TOMASZ MEAD 11/09 Released w/o Limitations [facility] Neurol[facility]) [facility]) OUTPATIENT [id number] right shoulde r injury ABBE FARRELL 11/09 Immediate Referral [facility] Enduring [facility]) OUTPATIENT [id number] 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 11/12 Released w/o Limitations [facility](L Endurin g [facility]) [facility]) OUTPATIENT [id number] joint pain, localiz ed in the shoulde r UJANY AARON 11/12 Released w/o Limitations [facility] Physica [facility] Therapy ) [facility]) OUTPATIENT [id number] MRI F/u ABBE FARRELL 11/13 Immediate Referral [facility]) [facility]) OUTPATIENT [id number] oif MURPHY GRACIA 11/13 Released w/o Limitations [facility] Physica [facility] Therapy ) [facility]) OUTPATIENT [id number] TRANSFE R FOR CARE FANY BOWER 11/13 Released w/o Limitations [facility]) [facility]) OUTPATIENT [id number] pain meds URSULA CELIS 11/13 Released w/o Limitations [facility]) [facility]) OUTPATIENT [id number] oif MURPHY GRACIA 11/14 Released w/o Limitations [facility] Phys[facility] Therapy ) [facility]) OUTPATIENT [id number] DIMA NAGY 11/15 Released w/o Limitations [facility] Phys[facility] Therapy ) [facility]) OUTPATIENT [id number] inproce ssing KRYSTAL YIP 11/19 Released w/o Limitations [facility] and [facility]) G[facility]RIELLA [facility]) OUTPATIENT [id number] Inproce ssing SENA WOODS 11/19 Released with Work/Duty Limitations [facility]) [facility] GABRIELL[facility] d [facility]) OUTPATIENT [id number] Initial Intake HILARIA ASHLEY 11/19 Released with Work/Duty Limitations G[facility]RIELLA [facility](Irel and [facility] Managem [facility]) GABRIELLA [facility]) OUTPATIENT [id number] Inproce ssing Physica l MUSTAPHA AGUIRRE 11/20 Released with Work/Duty Limitations [facility]LLA [facility]) [facility] G[facility](Orthop edic) OUTPATIENT [id number] SHOULDE R SPRAIN ANTERIO R GLENOID LABRUM LESION OLIVER MACEDO 11/23 Released with Work/Duty Limitations [facility] [place] [facility] [place] [id number] CHAYO VIEYRA Benedicto 11/23 Released w/o Limitations [facility] [place] [facility] [place] [facility] OUTPATIENT [id number] HILARIA ASHLEY 11/26 Released with Work/Duty Limitations [facility] [place] [facility] [place] [facility] [place] [id number] PER REQ OF FANY HAMILTON 11/27 Released with Work/Duty Limitations [facility] [place] [facility] [place] [id number] RIGHT GRADE I-II ACJ SPRAIN EMANUEL DONG Doug 11/28 Released [place]o Limitations [facility] [place] [facility] [place] [facility] OUTPATIENT [id number] sleep issues MUSTAPHA AGUIRRE Benedicto 11/28 Released with Work/Duty Limitations [facility] [place] [facility] [facility] [place] OUTPATIENT [id number] i/p JULIA MARTINEZ 11/30 Released with Work/Duty Limitations [facility] [place] [facility] [place] [facility] [place] OUTPATIENT [id number] HILARIA ASHLEY 12/05 Released with Work/Duty Limitations [facility] [place] [facility] [place] [id number] STEPHEN KUHN 12/05 Released w[place]o Limitations [facility] [place] [facility] [place] [id number] JEUSS LYONS 12/07 Released w[place]o Limitations [facility] [place] [facility] [place] [id number] JESUS LYONS 12/10 Released w[place]o Limitations [facility] [place] [facility] [place] [id number] JESUS LYONS 12/12 Released w/o Limitations [facility] [place] [facility] [place] [facility] [place] OUTPATIENT [id number] HILARIA ASHLEY 12/12 Released with Work/D[place]itations [facility] [place] [facility] [facility] [place] [facility] [id number] f/u labs MUSTAPHA AGUIRRE 12/13 Released with Work[place] [facility] [place] [facility] [facility] [place] [id number] SULEMA FOOTE 12/14 [place]ased [place] [facility] [place] [facility] [place]) [place] [id number] JESUS LYONS 12/17 Released [place] [facility] [place] [facility] [place] [id number] EMANUEL DONG 12/18 Released w[place] [facility] [place] [facility] [place] [facility]PAT[place] [id number] HILARIA ASHLEY 12/19 Released with Work/[place] [facility] [place] [facility] [place]) [place] [id number] STEPHEN KUHN 12/24 Released [place] [facility] [place] [facility] [place] [facility] [id number] [facility] periodi c f/u and f/u from ER for migrain es MUSTAPHA AGUIRRE 12/25 Released with [place] [facility] [place] [facility] [facility] [place] [id number] QAMAR SULEMA L 12/26 [place]ased [place] [facility] [place] [facility] [place] [id number] f/u right should f/u per FANY Ruiz 12/27 Released with [place] [facility] [place] [facility] [place] [facility] OUTPAT[place] [id number] HILARIA ASHLEY 12/27 Released with Work/Duty [place]itations [facility] [place] [facility] [place] [id number] DENIA MACARIO L 01/02 [place]ased [place] [facility] [place] [facility] [place] [facility] [id number] JONY HOWARD 01/03 Released with Work[place] [facility] [place] [facility] [place] [id number] STEPHEN KUHN 01/04 [place]ased [place] [facility] [place] [facility] [place] [id number] EMANUEL DONG 01/07 [place]ased [place] [facility] [place] [facility] [place] [facility] [id number] med refill MUSTAPHA AGUIRRE 01/09 Sick at Home/[place] [facility] [place] [facility] [facility] [place] [facility] [id number] Migrain Headach es to see MUSTAPHA Valadez 01/10 [place]ick at Home[place] [facility] [place] [facility] [facility] [place] [facility] [id number] HILARIA ASHLEY 01/10 Released with Work/D[place] [facility] [place] [facility] [place] [facility] [id number] HILARIA ASHLEY 01/17 Released with Work[place] [facility] [place] [facility] [place] [facility] [id number] f/u from headach es and MUSTAPHA MARRERO 01/24 Released with Work[place] [facility] [place] [facility] [facility] [place] [facility] [place] [id number] HILARIA ASHLEY 01/24 Released with Work[place] [facility] [place] [facility] [place] [id number] MEDICAL INTAKE [id number] 01/28 Released with Work/D[place] [facility] [place] [facility] [facility] [place] [id number] Initial intake by Cab Supervisor TITI SAAVEDRA 01/29 Released with Work[place] [facility] [place] [facility] [facility] [place] [id number] Weekly contact with Cab Supervisor . TITI SAAVEDRA 02/06 Released with Work/D[place] [facility] [place] [facility] [place] [id number] Weekly contact with Cab Supervisor . TITI SAAVEDRA 02/12 Released with Work/D[place] [facility] [place] [facility] [place] [id number] Weekly contact with Cab Supervisor TITI SAAVEDRA 02/19 Released with Work/D[place] [facility] [place] [facility] [place] [id number] Weekly contact with Cab Supervisor . TITI SAAVEDRA 03/07 Released with Work/D[place] [facility] [place] [facility] [facility] [place] [id number] Monthly review with [facility] Blank MORENO. TITI SAAVEDRA 03/11 Released with Work[place] [facility] [place] [facility] [facility] [place] [facility] TELE CONSULT [id number] Update by Cab Supervisor TITI SAAVEDRA 03/26 [facility] [place] [facility] [facility] [place] [id number] Weekly contact with Cab Supervisor TITI SAAVEDRA 04/01 Released with Work/Duty [place]itations [facility] [place] [facility] [facility] [place] [id number] BH crisis TITI SAAVEDRA 04/04 [place] [facility] [place] [facility] [facility] [place] [facility] TELE CONSULT [id number] Update by Cab Supervisor TITI SAAVEDRA 04/11 [facility] [place] [facility] [facility] [place] [id number] Weekly contact with Cab Supervisor TITI SAAVEDRA 04/12 Released with Work/D[place] [facility] [place] [facility] [facility] [place] [facility] [id number] Weekly contact with Cab Supervisor TITI SAAVEDRA 04/15 Released with Work/D[place]itations [facility] [place] [facility] [facility] [place] TELE CONSULT [id number] WT ill today TITI SAAVEDRA 04/16 [facility] [place] [facility] [facility] [place] [facility] [id number] Weekly contact with Cab Supervisor TITI SAAVEDRA 04/22 Released with Work/D[place]itations [facility] [place] [facility] [facility] [place] [facility] [id number] Weekly contact with Cab Supervisor TITI SAAVEDRA 05/02 Released with Work/Duty [place]itations [facility] [place] [facility] [facility] [place] [facility] [id number] Weekly contact with Cab Supervisor TITI SAAVEDRA 05/16 Released with Work/Duty [place]itations [facility] [place] [facility] [facility] [place] [id number] 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 TTII SAAVEDRA 05/20 Released with Work/Duty [place]itations [facility] [place] [facility] [facility] [place] [facility] [id number] Weekly contact with Cab Supervisor TITI SAAVEDRA 05/29 Released with Work/Duty [place]itations [facility] [place] [facility] [facility] [place] [facility] [id number] Weekly contact with Cab Supervisor TITI SAAVEDRA 06/03 Released with Work/D[place] [facility] [place] [facility] [facility] [place] [facility] [id number] Weekly contact with Cab Supervisor TITI SAAVEDRA 06/13 Released with Work/Duty [place] [facility] [place] [facility] [facility] [place] [id number] Weekly contact with Cab Supervisor TITI SAAVEDRA 06/18 Released with Work/Duty [place] [facility] [place] [facility] [facility] [place] [id number] Weekly contact with Cab Supervisor TITI SAAVEDRA 06/25 Released with Work/D[place]itations [facility] [place] [facility] [facility] [place] [id number] Cab Supervisor note TITI SAAVEDRA 07/03 [place] [facility] [place] [facility] [facility] [place] [id number] Weekly CM note TITI SAAVEDRA 07/08 Released with Work/D[place] [facility] [place] [facility] [facility] [place] [facility] [id number] Weekly contact with Cab Supervisor TITI SAAVEDRA 07/25 Released with Work/Duty [place]itations [facility] [place] [facility] [facility] [place] [id number] Weekly contact with Cab Supervisor TITI SAAVEDRA 08/01 Released with Work/D[place]itations [facility] [place] [facility] [facility] [place] [id number] 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 contact with nurse major case detective TITI SAAVEDRA 08/05 Released with Work/D[place] [facility] [place] [facility] [facility] [place] [facility] [id number] Weekly contact with nurse major case detective TITI SAAVEDRA 08/12 Released with Work/Duty [place]itations [facility] [place] [facility] [facility] [place] [facility] [id number] 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 contact with nurse major case detective TITI SAAVEDRA 08/22 Released with Work/Duty [place]itations [facility] [place] [facility] [facility] [place] [id number] Weekly contact with major case detective TITI SAAVEDRA 08/28 Released with Work/Duty [place]itations [facility] [place] [facility] [facility] [place] [facility] [id number] Weekly contact with nurse major case detective TITI SAAVEDRA 09/04 Released with Work/D[place]itations [facility] [place] [facility] [facility] [place] [id number] Weekly contact with nurse major case detective TITI SAAVEDRA 09/18 Released with Work/Duty [place]itations [facility] [place] [facility] [facility] [place] [id number] Weekly contact with nurse major case detective TITI SAAVEDRA 09/30 Released with Work/Duty [place]itations [facility] [place] [facility] [facility] [place] [id number] Weekly contact with nurse major case detective TITI SAAVEDRA 10/09 Released with Work/Duty [place] [facility] [place] [facility] [facility] [place] [id number] Robert Rojo 10/10/19 JORGE MCKEON 10/15 Released with Work/Duty [place]itations [facility] [place] [facility] [facility] [place] [id number] Weekly contact with nurse major case detective TITI SAAVEDRA 10/17 Released with Work/D[place]itations [facility] [place] [facility] [facility] [place] [facility] [id number] ICR with TITI Ambrocio 10/29 Released with Work/Duty [place]itations [facility] [place] [facility] [facility] [place] [id number] Weekly contact with nurse major case detective TITI SAAVEDRA 11/07 Released with Work/D[place]itations [facility] [place] Procedures Combined list of: 1) Procedures from Department of Veterans Affairs facilities going back up to thelast 18 months, not all VA non-surgical procedures are included; 2) All procedures from the Department of Defense facilities. Procedure Procedure Type Code Date Perfomer Comments Vigneshjose e INFLUENZA VIRUS VACCINE, TRIVALENT, LIVE (LAIV3), FOR INTRANASAL USE 008 [facility] COLLECTION OF VENOUS BLOOD BY VENIPUNCTURE [facility] OPHTHALMOLOGICAL SERVICES: MEDICAL EXAMINATION AND EVALUATION WITH INITIATION OF DIAGNOSTIC AND TREATMENT PROGRAM; COMPREHENSIVE, NEW PATIENT, 1 OR MORE VISITS 008 [facility] INTRODUCTION OF NEEDLE OR INTRACATHETER, VEIN 008 [facility] APPLICATION OF A MODALITY TO 1 OR MORE AREAS; HOT OR COLD PACKS 009 [facility] THERAPEUTIC PROCEDURE, 1 OR MORE AREAS, EACH 15 MINUTES; THERAPEUTIC EXERCISES TO DEVELOP STRENGTH AND ENDURANCE, RANGE OF MOTION AND FLEXIBILITY 009 [facility] APPLICATION OF A MODALITY TO 1 OR MORE AREAS; HOT OR COLD PACKS 009 [facility] SELF-CARE/HOME MANAGMENT TRAIN (EG,ACT OF DAILY LIVING (ADL) &COMPENSAT TRAIN,MEAL PREPARATION,SAFETY PROCS,AND INSTRUCT IN USE OF ASST TECHNOLOGY DEV/ADPT EQUIP) DIR ONE-ON-ONE CONT,EA 15 MINUTES 009 [facility] CASE MANAGEMENT, EACH 15 MINUTES 009 [facility] INFUSION, NORMAL SALINE SOLUTION , 1000 CC 007 [facility] PATIENT EDUCATION, NOT OTHERWISE CLASSIFIED, NON-PHYSICIAN PROVIDER, GROUP, PER SESSION 007 [facility] PATIENT EDUCATION, NOT OTHERWISE CLASSIFIED, NON-PHYSICIAN PROVIDER, GROUP, PER SESSION 007 [facility] SCREENING TEST OF VISUAL ACUITY, QUANTITATIVE, BILATERAL 007 [facility] MEASLES, MUMPS AND RUBELLA VIRUS VACCINE (MMR), LIVE, FOR SUBCUTANEOUS USE 007 [facility] BUPRENORPHINE IMPLANT, 74.2 MG 007 [facility] SCREENING TEST OF VISUAL ACUITY, QUANTITATIVE, BILATERAL 007 [facility] PATIENT EDUCATION, NOT OTHERWISE CLASSIFIED, NON-PHYSICIAN PROVIDER, GROUP, PER SESSION 007 [facility] CASE MANAGEMENT, EACH 15 MINUTES 010 Do[facility] INJECTION, KETOROLAC TROMETHAMINE, PER 15 MG 009 [facility] PSYCHIATRIC DIAGNOSTIC INTERVIEW EXAMINATION [facility] THERAPEUTIC PROCEDURE, 1 OR MORE AREAS, EACH 15 MINUTES; THERAPEUTIC EXERCISES TO DEVELOP STRENGTH AND ENDURANCE, RANGE OF MOTION AND FLEXIBILITY [facility] THERAPEUTIC PROCEDURE(S), GROUP (2 OR MORE INDIVIDUALS) [facility] INDIVIDUAL PSYCHOTHERAPY, INSIGHT ORIENTED, BEHAVIOR MODIFYING AND/OR SUPPORTIVE, IN AN OFFICE OR OUTPATIENT FACILITY, APPROXIMATELY 45 TO 50 MINUTES [id number] WITH THE PATIENT THERAPEUTIC PROCEDURE(S), GROUP (2 OR MORE INDIVIDUALS) [facility] THERAPEUTIC PROCEDURE(S), GROUP (2 OR MORE INDIVIDUALS) [facility] APPLICATION OF A MODALITY TO 1 OR MORE AREAS; HOT OR COLD PACKS [facility] INFUSION, NORMAL SALINE SOLUTION , 1000 CC [facility] PHYSICAL THERAPY RE-EVALUATION APPLICATION OF A MODALITY TO 1 OR MORE AREAS; HOT OR COLD PACKS [facility] APPLICATION OF A MODALITY TO 1 OR MORE AREAS; HOT OR COLD PACKS [facility] THERAPEUTIC PROCEDURE(S), GROUP (2 OR MORE INDIVIDUALS) [facility] INDIVIDUAL PSYCHOTHERAPY, INSIGHT ORIENTED, BEHAVIOR MODIFYING AND/OR SUPPORTIVE, IN AN OFFICE OR OUTPATIENT FACILITY, APPROXIMATELY 45 TO 50 MINUTES [id number] WITH THE PATIENT [facility] THERAPEUTIC PROCEDURE(S), GROUP (2 OR MORE INDIVIDUALS) [facility] THERAPEUTIC PROCEDURE(S), GROUP (2 OR MORE INDIVIDUALS) [facility] INDIVIDUAL PSYCHOTHERAPY, INSIGHT ORIENTED, BEHAVIOR MODIFYING AND/OR SUPPORTIVE, IN AN OFFICE OR OUTPATIENT FACILITY, APPROXIMATELY 45 TO 50 MINUTES [id number] WITH THE PATIENT [facility] INDIVIDUAL PSYCHOTHERAPY, INSIGHT ORIENTED, BEHAVIOR MODIFYING AND/OR SUPPORTIVE, IN AN OFFICE OR OUTPATIENT FACILITY, APPROXIMATELY 20 TO 30 MINUTES [id number] WITH THE PATIENT [facility] MANUAL THERAPY TECHNIQUES (EG, MOBILIZATION/ MANIPULATION, MANUAL LYMPHATIC DRAINAGE, MANUAL TRACTION), 1 OR MORE REGIONS, EACH 15 MINUTES [facility] INDIVIDUAL PSYCHOTHERAPY, INSIGHT ORIENTED, BEHAVIOR MODIFYING AND/OR SUPPORTIVE, IN AN OFFICE OR OUTPATIENT FACILITY, APPROXIMATELY 45 TO 50 MINUTES [id number] WITH THE PATIENT [facility] PHYSICAL THERAPY EVALUATION [facility] PURE TONE AUDIOMETRY (THRESHOLD); AIR ONLY [facility] PSYCHIATRIC DIAGNOSTIC INTERVIEW EXAMINATION [facility] INDIVIDUAL PSYCHOTHERAPY, INSIGHT ORIENTED, BEHAVIOR MODIFYING AND/OR SUPPORTIVE, IN AN OFFICE OR OUTPATIENT FACILITY, APPROXIMATELY 20 TO 30 MINUTES [id number] WITH THE PATIENT [facility] Case Management, each [address] Supervised Injection Intramuscular Supervised Injection Intramuscular 64529 MUSTAPHA AGUIRRE [facility] Injection, ketorolac tromethamine, per 15 mg MUSTAPHA AGUIRRE [facility] Psychiatric Evaluation Comprehensive Examination Psychiatric Evaluation Comprehensive Examination 66990 LEXII ABREU [facility] Exercises A isted Exercises For ROM Exercises Assisted Exercises For ROM 72851 009 EMANUEL DONG [facility] Physical Medicine Physical Therapy Re-Evaluation Physical Medicine Physical Therapy Re-Evaluation 24948 009 EMANUEL DONG [facility] Physical Medicine - Group Physical Therapy Se ion Physical Medicine - Group Physical Therapy Session 18640 009 STEPHEN KUHN [facility] Social Work Individual Outpatient Counseling 45-50 Minutes Social Work Individual Outpatient Counseling 45-50 Minutes 54356 009 DIVINA ARROYO [facility] Physical Medicine - Group Physical Therapy Se ion Physical Medicine - Group Physical Therapy Session 36825 009 RENALDO, July [facility] Modalities Cryotherapy Cold Packs Modalities Cryotherapy Cold Packs 52856 009 RENALDO, July [facility] Physical Medicine - Group Physical Therapy Se ion Physical Medicine - Group Physical Therapy Session 63533 009 SULEMA FOOTE [facility] Modalities Cryotherapy Cold Packs Modalities Cryotherapy Cold Packs 24144 009 STEPHEN KUHN [facility] Physical Medicine - Group Physical Therapy Se ion Physical Medicine - Group Physical Therapy Session 16854 009 STEPHEN KUHN [facility] Physical Medicine Physical Therapy Re-Evaluation Physical Medicine Physical Therapy Re-Evaluation 51386 009 EMANUEL DONG [facility] Modalities Cryotherapy Cold Packs Modalities Cryotherapy Cold Packs 68428 009 JESUS LYONS [facility] Physical Medicine - Group Physical Therapy Se ion Physical Medicine - Group Physical Therapy Session 20310 009 JESUS LYONS [facility] Physical Therapy: ___ Se ion Segments, 15 Minutes Each Physical Therapy: ___ Session Segments, 15 Minutes Each 14943 009 JESUS LYONS [facility] Modalities Cryotherapy Cold Packs Modalities Cryotherapy Cold Packs 45345 009 SULEMA FOOTE [facility] Physical Medicine - Group Physical Therapy Se ion Physical Medicine - Group Physical Therapy Session 40377 009 SULEMA FOOTE [facility] Physical Therapy: ___ Se ion Segments, 15 Minutes Each Physical Therapy: ___ Session Segments, 15 Minutes Each 21860 009 JESUS LYONS [facility] Physical Medicine - Group Physical Therapy Se ion Physical Medicine - Group Physical Therapy Session 23068 009 JESUS LYONS [facility] Social Work Individual Outpatient Counseling 45-50 Minutes Social Work Individual Outpatient Counseling 45-50 Minutes 06540 009 DIVINA ARROYO [facility] Physical Therapy Mobilization Joint Physical Therapy Mobilization Joint 79645 009 STEPHEN KUHN [facility] Modalities Cryotherapy Cold Packs Modalities Cryotherapy Cold Packs 75821 009 STEPHEN KUHN [facility] Physical Medicine - Group Physical Therapy Se ion Physical Medicine - Group Physical Therapy Session 51838 009 STEPHEN KUHN [facility] Physical Medicine - Group Physical Therapy Se ion Physical Medicine - Group Physical Therapy Session 63536 009 JESUS LYONS [facility] Physical Therapy: ___ Se ion Segments, 15 Minutes Each Physical Therapy: ___ Session Segments, 15 Minutes Each 79456 009 JESUS LYONS [facility] Social Work Individual Outpatient Counseling 45-50 Minutes Social Work Individual Outpatient Counseling 45-50 Minutes 30130 009 DIVINA ARROYO [facility] Social Work Individual Outpatient Counseling 20-30 Minutes Social Work Individual Outpatient Counseling 20-30 Minutes 50800 009 VINCENZO WOODS [facility] Physical Medicine Physical Therapy Evaluation Physical Medicine Physical Therapy Evaluation 25025 009 EMANUEL DONG [facility] Social Work Individual Outpatient Counseling 45-50 Minutes Social Work Individual Outpatient Counseling 45-50 Minutes 92136 009 DIVINA ARROYO [facility] Psychiatric Evaluation Comprehensive Examination Psychiatric Evaluation Comprehensive Examination 17955 009 KALIN SOARES [facility] Threshold Audiogram (Pure Tone) Threshold Audiogram (Pure Tone) 76216 009 CHAYO VIEYRA Audiometry Group Testing Audiometry Group Testing 46811 009 CHAYO VIEYRA Social Work Individual Outpatient Counseling 20-30 Minutes Social Work Individual Outpatient Counseling 20-30 Minutes 90403 009 KALIN SOARES [facility] Modalities Cryotherapy Cold Packs Modalities Cryotherapy Cold Packs 18890 009 POUNDS, DIMA E [facility] Physical Therapy Neuromuscular Re-education Physical Therapy Neuromuscular Re-education 43200 009 POUNDS, DIMA E Pedro Exercises A isted Exercises For ROM Exercises Assisted Exercises For ROM 14349 009 POUNDS, DIMA E [facility] Physical Therapy: ___ Se ion Segments, 15 Minutes Each Physical Therapy: ___ Session Segments, 15 Minutes Each 64616 009 MARYAMNDS, DIMA E Pedro Physical Therapy Mobilization Joint Physical Therapy Mobilization Joint 51354 009 MURPHY GRACIA [facility] Physical Therapy: ___ Se ion Segments, 15 Minutes Each Physical Therapy: ___ Session Segments, 15 Minutes Each 40226 009 MURPHY GRACIA [facility] Physical Therapy Neuromuscular Re-education Physical Therapy Neuromuscular Re-education 91703 009 MURPHY GRACIA [facility] Modalities Cryotherapy Cold Packs Modalities Cryotherapy Cold Packs 46568 009 MURPHY GRACIA [facility] Modalities Cryotherapy Cold Packs Modalities Cryotherapy Cold Packs 78559 009 MURPHY GRACIA [facility] Physical Therapy Neuromuscular Re-education Physical Therapy Neuromuscular Re-education 74426 009 MURPHY GRACIA [facility] Physical Therapy Mobilization Joint Physical Therapy Mobilization Joint 41790 009 MURPHY GRACIA Physical Therapy: ___ Se ion Segments, 15 Minutes Each Physical Therapy: ___ Session Segments, 15 Minutes Each 01296 009 MURPHY GRACIA [facility] Phys Therapy Education Self Care Training - Per 15 Minutes Phys Therapy Education Self Care Training - Per 15 Minutes 76000 009 JUANY AARON [facility] Physical Medicine Physical Therapy Evaluation Physical Medicine Physical Therapy Evaluation 82696 009 JUANY AARON [facility] Visual Albert Test Intermediate Examination Visual Albert Test Intermediate Examination 23716 008 [facility] Spectacles Services Fitting Monofocals (Not For Aphakia) Spectacles Services Fitting Monofocals (Not For Aphakia) 76602 008 [facility] final fitting [facility] Determination Of Refractive State Determination Of Refractive State 07043 008 [facility] Ophthalmological New Patient Start Comprehensive Care Ophthalmological New Patient Start Comprehensive Care 00522 008 [facility] Intravenous Catheter Placement Intravenous Catheter Placement 11683 008 MEANS, AARON L [facility] Infusion, normal saline solution , 1000 cc 008 MEANS, AARON L [facility] Parenteral Fluids IV Infusion For Hydration 008 MEANS, AARON L [facility] Infusion, normal saline solution , 1000 cc 007 MARIAA MAK [facility] Intravenous Catheter Placement Intravenous Catheter Placement 27024 007 MARIAA MAK [facility] Patient education, not otherwise cla ified, non-physician provider, group, per se ion 007 NISHA HEBERT S. [facility] Ear Protector Attenuation Measurements Ear Protector Attenuation Measurements [id number] 007 NISHA HEBERT SDontrell [facility] Audiometry Group Testing Audiometry Group Testing [id number] 007 NISHA HEBERT S. [facility] REMOVAL OF IMPACTED TOOTH-SOFT TISSUE 011 Ambulatory Pharmacy EXTRACTION, ERUPTED TOOTH OR EXPOSED ROOT (ELEVATION AND/OR FORCEPS REMOVAL) 011 Ambulatory Pharmacy Social History Combined list of available smoking, tobacco, and other social history from [facility] and [facility] facilities. Social History Type Response Date Comment Sourc e Sex Representation Male (finding) 05/17/2023 Un known Organization Tobacco smoking status NHIS LIFETIME NON-USER OF TOBACCO 07/21/2014 [facility] History of tobacco use LIFETIME NON-USER OF TOBACCO 02/14/2014 [facility] History of tobacco use LIFETIME NON-USER OF TOBACCO 03/30/2013 [facility] History of tobacco use LIFETIME NON-USER OF TOBACCO 05/27/2012 [facility] History of tobacco use LIFETIME NON-USER OF TOBACCO 11/19/2011 [facility] History of tobacco use LIFETIME NON-USER OF TOBACCO 01/23/2011 [facility] History of tobacco use LIFETIME NON-USER OF TOBACCO 08/25/2010 [facility] History of tobacco use LIFETIME NON-USER OF TOBACCO 08/13/2010 [facility] History of tobacco use LIFETIME NON-USER OF TOBACCO 05/19/2010 [facility] This section is an empty social history section. DoD Sexual Orientation Ambula tory Pharmacy Gender identity Ambulator y Pharmacy Assessment and Plan Combined list of future care activities from [facility] Defense and [facility] Affairs facilities (e.g., assessment and plan notes, appointments, orders, and referrals). Additional future care activities may be listed in the Plan of Care section. Result Assessment and Plan Date Source Assessment and Plan No data available for this section 08/15/2024 Ambulatory Pharmacy Advance Directives List of completed, amended, or rescinded Advance Directives on record at Department of Veterans Affairs facilities. An actual copy of the Directive is not included. Date Advance Directive Provider Source 07/23/2014 ADVANCE DIRECTIVE DISCUSSION DEYANIRA NDIAYE [facility] 05/27/2012 ADVANCE DIRECTIVE DISCUSSION DANIAL CARDENAS [facility] Functional Status Combined list of recent functional and cognitive assessments recorded at [facility] Functional [place] Measurement (FIM) Scale: 1 = Total Assistance (Subject = 0% +), 2 = Maximal Assistance (Subject = 25% +), 3 = Moderate Assistance (Subject = 50% +), 4 = Minimal Assistance (Subject = 75% +), 5 = Supervision, 6 = Modified [place] (Device), 7 = Complete [place] (Timely, Safely). Assessment Date/Time Source Assessment Type Assessment Skill Assessment Score Assessment Details No data available for this section
--- OUTSIDE RECORDS SUMMARY | 2024-08-15 09:03 | XMS_ITS | CONTINUITY OF CARE DOCUMENT ---
Author Name rafi mckee Address Unknown Organization [facility] Address [address] [place] [address] Phone [phone] Care Team Providers Care Computer Help Desk Specialist Name Role Phone Aric Holman MD Unavailable PROBLEMS Condition Status Date Provider Notes Dyspnea on exertion active Austin Lee Obesity;[facility] active 08/04/16 Aric Holman MD HTN controlled;LABS PER PRIMARY active Liudmila Holman MD Sleep apnea;ON CPAP active Aric Holman MD PTSD;HX OF SUICIDE ISSUES active Aric scott MD Chest pain-type to be determined active Chas Holman MD Hypercholesterolemia;NEED NUMBERS active Gregorio Holman MD ENCOUNTERS Date Type Provider Location Encounter Diag nosis - In-person encounter Office Visit Aric Holman MD [facility] Obesity;[facility] MEDIFAST [facility] DIET PILLHTN controlled;LABS PER PRIMARYSleep apnea;ON CPAPPTSD;HX OF SUICIDE ISSUESChest pain-type to be determinedHyperchole sterolemia;NEED NUMBERS VITAL SIGNS Date Observation Value Provider blood pressure, diastolic 65 mm[Hg] Arcelia Jiménez blood pressure, systolic 144 mm[Hg] Patrick Jiménez blood pressure, diastolic 76 mm[Hg] Dean Montana blood pressure, systolic 122 mm[Hg] Jack Montana Body Mass Index (Ratio) 42.18 kg/m2 Maricruz Montana pulse rate 79 /min Carole Montana oxygen saturation, oximetry 96 % Carole Montana respiratory rate E&M 17 /min Carole Montana weight E&M 294 [lb_av] Carole Montana height E&M 70 [in_i] Carole Montana ALLERGIES Allergy Name Onset Date Reaction Criticality Status BACLOFEN High Criticality active HISTORY OF MEDICATION USE Medication Status Instructions Dates Provider Indications Com ments QSYMIA 7.5-46 MG ORAL CAPSULE EXTENDED RELEASE 24 HOUR active one tablet daily Aric Holman MD QSYMIA 3.75-23 MG ORAL CAPSULE EXTENDED RELEASE 24 HOUR active one tablet daily Aric Holman MD ASPIRIN 81 MG ORAL TABLET active ONE TAB. DAILY Aric Holman MD HYDROCODONE-ACETAMI NOPHEN 5-325 MG ORAL TABLET active as needed Carole Montana CLARITIN 10 MG ORAL CAPSULE active 1 tab daily Carole Montana HYDROCORTISONE ACETATE 25 MG RECTAL SUPPOSITORY active twice daily as needed Carole Montana VIAGRA 25 MG ORAL TABLET active as needed Carolegarland Montana SERTRALINE HCL TABLET active 1 at bedtime Carolegarland Montana HYDROXYZINE HCL 50 MG ORAL TABLET active 1 tab three times daily Carole Montana CETIRIZINE HCL 10 MG ORAL TABLET active 1 tab daily Carole Montana DOCUSATE SODIUM 100 MG ORAL CAPSULE active 1 tab twice daily Carole Montana DEPAKOTE 500 MG ORAL TABLET DELAYED RELEASE active at bedtime Carole Montana ABILIFY 10 MG ORAL TABLET active 1 tab at bedtime Carole Montana FLONASE 50 MCG/ACT NASAL SUSPENSION active as directed Carole Montana ATIVAN 1 MG ORAL TABLET active 1 tab twice daily as needed Carole Montana METOPROLOL TARTRATE 50 MG ORAL TABLET active 1 tab twice daily Carole Montana SOCIAL HISTORY Date Observation Value Provider smoking status Never smoker Carole Montana FUNCTIONAL STATUS Date Observation Value Provider periodic limb movement index absent (0) Tena Jiménez FAMILY HISTORY Family Member Condition Father Family History of Co ronary Artery Disease: Father Family History of Hy pertension: Father Family History of Hy perlipidemia: INSURANCE PROVIDERS Payer name Policy type / Coverage type Elizabeth red libertarian [place] [employer] [id number] TREATMENT PLAN Date Name Performer [place] : O rders: C omplete Echo (CPT-82144) S TR - Routine (CPT-83898) F ull PFT (*) Aric Holman MD [place] : O rders: C omplete Echo (CPT-60133) S TR - Routine (CPT-33638) F ull PFT (*) Aric Holman MD [place] : H is updated medication list for this problem includes: Metoprolol Tartrate 50 Mg Tabs (Metoprolol tartrate) ..... 1 tab twice daily Orders: C omplete Echo (CPT-47691) S TR - Routine (CPT-37675) F ull PFT (*) Aric Holman MD [place] : O rders: C omplete Echo (CPT-86030) S TR - Routine (CPT-46388) Aric Homlan MD Date Name DLCO Order - [id number] FR Order - [id number] [facility] Order - [id number] Gallbladder Ultrasou nd X-Ray, Other Full PFT STR - Routine Complete Echo
[2024-08-15 11:04] LABS: Basophils Percent Auto 0.6 % (0.2-1.2); Eosinophils Absolute Auto 0.4 K/mm3 (0-0.3); Eosinophils Percent Auto 5.5 % (0-4.4); Hematocrit 44.2 % (42.0-52.0); Hemoglobin 14.8 g/dL (14.0-18.0); Immature Granulocyte Absolute 0.03 K/mm3 (0.00-0.031); Immature Granulocyte Percent A 0.4 % (0-0.5); Lymphocytes Absolute Auto 1.51 K/mm3 (0.9-3.2); Lymphocytes Percent Auto 21.9 % (18.3-44.2); Mean Corpuscular HGB Conc 33.5 g/dl (32-36); Mean Corpuscular Hemoglobin 29.7 pg (26-34); Mean Corpuscular Volume 88.8 fl (80-100); Mean Platelet Volume 9.7 fl (7.4-10.4); Monocytes Absolute Auto 0.5 K/mm3 (0.1-0.6); Neutrophils Absolute Auto 4.5 K/mm3 (1.3-6.7); Neutrophils Percent Auto 64.6 % (45.5-73.1); Platelet Count Result 206 k/mm3 (150-375); Red Blood Count 4.98 M/mm3 (4.6-6.20); Red Cell Distribution Width 13.9 % (11.5-14.5); White Blood Count 6.9 K/mm3 (4.5-10.0)
[2024-08-15 11:17] LABS: Alanine Aminotransferase 43 U/L (6-50); Albumin Level 4.6 g/dL (3.5-5.1); Alkaline Phosphatase 46 U/L (38-126); Anion Gap 10 mmol/L (4-12); Aspartate Amino Transferase 44 U/L (17-59); Blood Urea Nitrogen 12 mg/dL (9-20); Calcium 9.4 mg/dL (8.4-10.2); Carbon Dioxide 27 mmol/L (22-30); Chloride 101 mmol/L (98-107); Cholesterol 183 mg/dL (0-200); Estimated Glomerular Filt Rate > 60; Glucose 115 mg/dL (65-110); HDL Direct 36 mg/dL; Potassium 4.2 mmol/L (3.4-5.0); Sodium 138 mmol/L (137-145); Triglycerides 164 mg/dL (<150)
[2024-08-15 11:29] LABS: LDL Cholesterol Direct 109 mg/dL
[2024-08-15 11:33] LABS: Hemoglobin A1C 5.6 % (<5.7)
[2024-08-15 11:56] LABS: Creatinine Urine 34.1 mg/dL
[2024-08-15 12:08] LABS: MALB Creatinine Ratio < 17.6 mg/g (0-30); Microalbumin Urine Random < 6.0 mg/L (0-16.7)
[2024-08-19 17:04] LABS: Testosterone Total 581 ng/dL (250-1100)
== END 2024-08-15 08:40 | disposition home or self-care (01) ==
LOC: ANHGOSHLAB 08:40
PROVIDERS: PCP Family Medicine; Visit Provider Family Medicine
DX: Z12.5 Encounter for screening for malignant neoplasm of prostate (principal); R79.89 Other specified abnormal findings of blood chemistry; E11.9 Type 2 diabetes mellitus without complications; Z79.899 Other long term (current) drug therapy
CPT/HCPCS: 36415; 80053; 80061; 82043; 82607; 83036; 84153; 84403; 85025; G0103